=== PATIENT | female | born 1955 | race Caucasian/White ===

== ENCOUNTER 2016-12-22 21:36 | Emergency (ER) | payer BC, OTHER ==
[~2016-12-22] VITALS: Ht 157.5 cm; Wt 79.2 kg
[~2016-12-22 21:36] MED LIST: MULT-506 PO
[2016-12-22 21:41] VITALS: TEMP 36.4; Ht 157.5 cm; Wt 79.2 kg
--- NOTE | 2016-12-22 22:55 | DIAGNOSTIC IMAGING REPORT ---
CT HEAD WITHOUT CONTRAST (CT) CLINICAL HISTORY: Persistent headache status post head trauma COMPARISON STUDY: No previous studies for comparison. TECHNIQUE: Axial CT of the brain is performed from the vertex to the skull base. IV contrast was not administered for this examination. CT DOSE: 924.13 mGy.cm FINDINGS: No intra or extra-axial mass lesions are visualized. There is no CT evidence of acute cortical infarction. There is no evidence of midline shift. There is no acute hemorrhage. No calvarial fractures are visualized. There is no evidence of pathologic ventricular dilatation. There is no evidence of acute sinusitis IMPRESSION: Normal noncontrast head CT for age Electronically signed by: Ash Martines M.D. 12/22/2016 10:54 PM Dictated Date/Time: 12/22/2016 10:52 PM
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
[2016-12-22] MEDS ORDERED: FLEXERIL HOME PACK 10 MG VIAL PO ONE (23:15)
[2016-12-22] MEDS ORDERED: NORCO 5/325MG HOME PACK PO ONE (23:15)
[2016-12-22] MEDS ORDERED: HYDR-5688 PO (23:17)
[2016-12-22] MEDS ORDERED: CYCL10TA6 PO (23:17)
--- NOTE | 2016-12-22 23:23 | EMERGENCY ROOM VISIT NOTE ---
History First contact with patient: 22:18 Chief Complaint: HEADACHE Stated Complaint: HEADACHE History of Present Illness The patient is a 61 year old female who presents to the Emergency Room with complaints of a headache. She reports that she slipped and fell on ice 3 weeks ago and hit the back of her head. There was no loss of consciousness. She has had pain in the head and neck since then. She states it initially seemed to improve but has worsened over the past few days. She rates the discomfort a 9/ 10. She took Tylenol once last week for the pain but states this made her sleepy. She denies any associated nausea or vomiting. She states the pain is slightly worse with bright lights. She states it is a severe headache, but not the worst headache of her life. She describes it as a pressure-like pain. She does have a history of neck issues and currently goes to physical therapy for that. She denies any confusion, numbness, weakness, blurred vision, or slurred speech. Review of Systems A complete 10-point Review of Systems was discussed with the patient, with pertinent positives and negatives listed in the History of Present Illness. All remaining Review of Systems questions can be considered negative unless otherwise specified. Past Medical/Surgical History Medical Problems: (1) No pertinent past medical history Social History Smoking Status: Never Smoker Alcohol Use: occasionally Drug Use: none Marital Status: Housing Status: lives with family Occupation Status: employed Current/Historical Medications Scheduled Cyclobenzaprine Hcl (Flexeril), 10 MG PO TID Multivitamin (Multivitamin), 1 TAB PO DAILY Scheduled PRN Hydrocodone/Acetaminophen 5MG/325MG ([place] 5MG/325MG), 1-2 TABLET PO Q4H PRN for Pain Allergies Coded Allergies: No Known Allergies (Unverified , NKA, 12/22/16) Physical Exam Vital Signs Date Time Temp Pulse Resp B/P Pulse Ox O2 Delivery O2 Flow Rate FiO2 12/22/16 23:51 59 18 141/75 96 12/22/16 21:41 36.4 62 18 162/95 97 Room Air Physical Exam VITALS: Vitals are noted on the nurse's note and reviewed by myself. Vital signs stable. GENERAL: This is a 61-year-old female, in no acute distress, nondiaphoretic, well-developed well-nourished. SKIN: The skin was without rashes, erythema, edema, or bruising. HEAD: Normocephalic atraumatic. EARS: External auditory canals clear, tympanic membranes pearly gilmore without erythema or effusion bilaterally. No hemotympanum. EYES: Pupils equal round and reactive to light and accommodation. Conjunctivae without injection, sclerae without icterus. Extraocular movements intact. MOUTH: Mucous membranes moist. Tonsils are not enlarged. Pharynx without erythema or exudate. NECK: Supple without nuchal rigidity. Cervical spine is nontender. HEART: Regular rate and rhythm without murmurs gallops or rubs. LUNGS: Clear to auscultation bilaterally without wheezes, rales or rhonchi. MUSCULOSKELETAL: Full range of motion. Normal gait. Strength 5/5 throughout. NEURO: Patient was alert and oriented to person place and time. Normal sensation to light and sharp touch. Deep tendon reflexes 2+ throughout. No focal neurological deficits. Medical Decision & Procedures ER Provider Diagnostic Interpretation: CT HEAD WITHOUT CONTRAST (CT) IMPRESSION: Normal noncontrast head CT for age CT OF THE CERVICAL SPINE IMPRESSION: No evidence of acute fracture or traumatic subluxation. Medications Administered Medications (Trade) Dose Ordered Sig/Kwabena Route Start Time Stop Time Status Last Admin Dose Admin Cyclobenzaprine HCl (FLEXERIL 10MG Home Pack) 1 homepack UD ONCE PO 12/22/16 23:15 12/22/16 23:16 DC 12/22/16 23:48 1 HOMEPACK Acetaminophen/ Hydrocodone Bitart ([place] 5/325mg Home Pack) 1 homepack UD ONCE PO 12/22/16 23:15 12/22/16 23:16 DC 12/22/16 23:49 1 HOMEPACK Medical Decision The differential diagnosis includes acute intracranial bleed, meningitis, encephalitis, mass or mass effect, sinusitis, infection, tumor, headache, temporal arteritis and carbon monoxide exposure, and migraine. The patient was evaluated as above. CT scan of the head and neck were performed and read by radiology with no acute findings. The patient was informed of findings. Conservative measures were discussed. She likely has postconcussive syndrome. She was given a prescription for Flexeril and [place]. She will follow-up with her primary care provider for further evaluation of her symptoms. She will return for worsening or new/concerning symptoms. Based on the patient's presentation, lab results, and imaging studies, I feel the patient is stable for outpatient treatment. Discharge instructions were reviewed with the patient. The patient verbalized understanding of my assessment and treatment plan and was discharged home in good condition. Impression Primary Impression: Closed head injury Departure Information Dispostion Home / Self-Care Condition GOOD Prescriptions Hydrocodone/Acetaminophen 5MG/325MG ([place] 5MG/325MG) Tab 1-2 TABLET PO Q4H Y for Pain, #10 TAB For Initial Treatment Prov: Carlota Garduno PA-C 12/22/16 Cyclobenzaprine Hcl (FLEXERIL) 10 Mg Tab 10 MG PO TID for 3 Days, #9 TAB Prov: Carlota Garduno PA-C 12/22/16 Referrals Joseph Lopez M.D. (PCP) Patient Instructions My [facility] Additional Instructions You have been treated in the Emergency Department for a Closed Head Injury. CT Scan of your head/brain demonstrated no acute bleeding or other abnormalities. This does not completely rule out the risk for future damage to the brain. You have been prescribed [place] to be used for pain control. This is a narcotic medication. You cannot drive or consume alcohol while on this medicine. This medicine should only be used for pain that cannot be controlled with over-the- counter pain medicines. You have been prescribed Flexeril (cyclobenzaprine) 1-2 tabs orally, three times per day. Do NOT exceed 30 mg (6 tabs) per day. Take your first dose at bedtime as it can make you drowsy. Always take all medications as prescribed. For pain control, you can use the following ervk-yal-lxnmeye medicines (if >12 yo): - Regular strength (325mg/tab) Tylenol (acetaminophen) 2 tabs every 4-6 hours as needed. Do not exceed 12 tablets in a 24 hour period. Avoid taking more than 4 grams (4000 mg) of Tylenol per day. This includes any other sources of acetaminophen you may take on a regular basis. - Regular strength (200 mg/tab) Advil (ibuprofen) 1-2 tabs every 4-6 hours as needed. Do not exceed a dose of 3200 mg per day. You should relax in a quiet, dark place for the rest of the day. Avoid any possible triggers including: cigarette smoke, caffeine, nicotine, chocolate, wine, beer, loud noises or music, or bright lights. You should schedule a follow-up appointment in 2-3 days with your Primary Care Provider or established Neurologist for further evaluation and treatment of your Headache. [] You should NOT return to athletic play until reevaluated by your Electrical Appliance Mechanic. You should fully comply with their standard protocol regarding head injuries. Your Electrical Appliance Mechanic OR Primary Care Provider will have the final say in your return to athletic play. This timeframe should be AT LEAST 1 week AFTER the date of last symptoms experienced! This is ESSENTIAL to allow for adequate brain healing time and for reduced risk of re-injury. Return to the Emergency Department if your current symptoms worsen despite treatment course outlined above, or if you develop any of the following symptoms : intractable pain despite aforementioned treatment course, visual disturbances , loss of vision, unilateral weakness or facial drooping, slurring of speech, loss of coordination, or loss of consciousness. Problem Qualifiers Primary Impression: Closed head injury Encounter type: initial encounter Qualified Codes: S09.90XA - Unspecified injury of head, initial encounter
[2016-12-22 23:51] VITALS: BP 141/75; PULSE 59; O2SAT 96
== END 2016-12-22 23:52 | disposition home or self-care (01) ==
LOC: C.EDB 21:37 → C.EDA 23:52
DX: S09.90XA Unspecified injury of head, initial encounter (principal); W00.0XXA Fall on same level due to ice and snow, initial encounter

== ENCOUNTER → 2017-05-04 | Outpatient (CLI) | payer BC ==
[~2017-05-04] MED LIST changes: +HYDR-5688 PO
[2017-05-04 12:37] LABS: BASO % 1.1 %; BASO ABS # 0.06 K/uL (0-0.2); COMPLETE YES; EOS % 1.8 %; HEMATOCRIT 45.4 % (37-47); IG% 0.2 %; LYMPH % 22.5 %; LYMPH ABS # 1.24 K/uL (1.2-3.4); MEAN CELL VOLUME 91.2 fL (80-100); MEAN CORPUSCULAR HEMOGLOBIN 29.7 pg (25-34); MEAN CORPUSCULAR HGB CONC 32.6 g/dl (32-36); MEAN PLATELET VOLUME 10.8 fL (7.4-10.4); MONO % 11.4 %; PLATELET COUNT 249 K/uL (130-400); RED BLOOD COUNT 4.98 M/uL (4.2-5.4); WHITE BLOOD COUNT 5.51 K/uL (4.8-10.8)
[2017-05-04 12:44] LABS: ALT/SGPT 36 U/L (12-78); AST/SGOT 29 U/L (15-37); BLOOD UREA NITROGEN 16 mg/dl (7-18); BUN/CREATININE RATIO 21.1 (10-20); CALCIUM 8.3 mg/dl (8.5-10.1); CARBON DIOXIDE 23 mmol/L (21-32); CHLORIDE 111 mmol/L (98-107); CREATININE 0.78 mg/dl (0.60-1.20); GLUCOSE 95 mg/dl (70-99); POTASSIUM 3.8 mmol/L (3.5-5.1); SODIUM 142 mmol/L (136-145)
[2017-05-04 12:47] LABS: ALKALINE PHOSPHATASE 63 U/L (45-117)
== END | disposition home or self-care (01) ==
LOC: C.LABBFT 10:00
PROVIDERS: ATTEND Physician Assistant Medical
DX: R19.7 Diarrhea, unspecified (principal); R10.9 Unspecified abdominal pain

== ENCOUNTER 2018-01-10 10:48 | Emergency (ER) | payer BC ==
[~2018-01-10] VITALS: Ht 157.5 cm; Wt 82.7 kg
[2018-01-10 10:50] VITALS: TEMP 36.5; Ht 157.5 cm; Wt 82.7 kg
[2018-01-10] MEDS ORDERED: IBUPROFEN 600 MG TAB PO STA (11:10)
[2018-01-10] MEDS ORDERED: TRAMADOL HCL 50 MG TAB PO STA (11:10)
[2018-01-10] MEDS ORDERED: DIPHTHERIA/TETANUS/PERTUSSIS 0.5 ML SYR/VIAL IM. ONE (11:15)
--- NOTE | 2018-01-10 12:01 | DIAGNOSTIC IMAGING REPORT ---
L WRIST W/NAVICULAR MIN 3 VIEWS CLINICAL HISTORY: L wrist dog bite COMPARISON: None FINDINGS: No acute fracture is identified. There is no evidence for osteomyelitis. There is left wrist soft tissue swelling. 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 Cortical irregularity with a few tiny ossific/calcific densities adjacent to the distal left radius are likely old. IMPRESSION: No acute fracture or evidence of osteomyelitis within the left wrist by radiography. Electronically signed by: Miguelangel Colunga M.D. 01/10/2018 12:00 PM Dictated Date/Time: 01/10/2018 11:58 AM
[2018-01-10] MEDS ORDERED: AMOX875T PO (12:17)
[2018-01-10] MEDS ORDERED: TRAM-10 PO (12:17)
--- NOTE | 2018-01-10 12:26 | EMERGENCY ROOM VISIT NOTE ---
History First contact with patient: 11:02 Chief Complaint: BITE Stated Complaint: DOG BITE TO LEFT ARM History of Present Illness The patient is a 62 year old female who presents to the Emergency Room with complaints of a dog bite to her left hand. The patient reports that her [place] dog was biting on his palm this morning. When she tried to examine the palm, the dog bit her. This happened around 6 AM this morning. The patient denies any significant bleeding from the wound. She rates her discomfort a 10 out of 10. The patient is uncertain of her last tetanus immunization. Her dog is up-to-date on its shots. Review of Systems 10 system review was performed and was negative except for pertinent positives and negatives as indicated in history of present illness Past Medical/Surgical History Medical Problems: (1) No pertinent past medical history Medical Problems: (1) Celiac disease (2) Diaphragmatic Hernia (3) No pertinent past medical history (4) Ovarian Cyst Nec/Nos (5) Reflux Esophagitis Surgical Problems: (1) History of arthroscopy of knee (2) History of delivery Family History FH: diabetes mellitus Social History Smoking Status: Never Smoker Alcohol Use: occasionally Drug Use: none Marital Status: Housing Status: lives alone Occupation Status: employed Current/Historical Medications Scheduled Amoxicillin & Pot Clavulanate (Augmentin 875-125 mg), 1 TAB PO BID Calcium/Vitamin D (Os-Didier 500 Plus D), 1 TAB PO DAILY Glucosamine-Chondroitin (Glucosamine & Chondroitin 500-400 mg), 1 CAP PO DAILY Multivitamin (Multivitamin), 1 TAB PO DAILY Oxybutynin Chloride (Oxybutynin Chloride ER), 10 MG PO DAILY Scheduled PRN Tramadol (Ultram), 1-2 TAB PO Q4H PRN for Pain Physical Exam Vital Signs Date Time Temp Pulse Resp B/P (MAP) Pulse Ox O2 Delivery O2 Flow Rate FiO2 01/10/18 10:50 36.5 81 18 165/90 95 Room Air Physical Exam CONSTITUTIONAL: Healthy and well nourished. Patient does not appear in any acute distress on exam. HEENT: Normocephalic, atraumatic. Pupils equal, round and reactive. NECK: Full active range of motion without discomfort. MUSCULOSKELETAL: Examination of the left hand shows a puncture wound near the dorsal base of the first metacarpal, and another smaller puncture wound at the base of the thenar eminence. Flexion and extension of the thumb worsens her discomfort. She has no focal tenderness over the anatomic snuffbox. Capillary refill of the fingers is less than 2 seconds. INTEGUMENTARY: No rash or other significant dermatologic conditions noted. NEUROLOGIC: Left hand and fingers are sensory intact. Medical Decision & Procedures ER Provider Diagnostic Interpretation: My interpretation of left wrist x-rays does not show any acute foreign bodies, fractures, dislocations or evidence for osteomyelitis. Radiologist report is as follows: L WRIST W/NAVICULAR MIN 3 VIEWS CLINICAL HISTORY: L wrist dog bite COMPARISON: None FINDINGS: No acute fracture is identified. There is no evidence for osteomyelitis. There is left wrist soft tissue swelling. 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 Cortical irregularity with a few tiny ossific/calcific densities adjacent to the distal left radius are likely old. IMPRESSION: No acute fracture or evidence of osteomyelitis within the left wrist by radiography. Medications Administered Medications (Trade) Dose Ordered Sig/Kwabena Route Start Time Stop Time Status Last Admin Dose Admin Diphtheria/ Pertussis/Tetanus Vacc (Adacel Inj) 0.5 ml ONCE ONCE IM. 01/10/18 11:15 01/10/18 11:16 DC 01/10/18 11:20 0.5 ML Ibuprofen (Motrin Tab) 600 mg NOW STAT PO 01/10/18 11:10 01/10/18 11:12 DC 01/10/18 11:19 600 MG Tramadol HCl (Ultram Tab) 50 mg ONE STAT PO 01/10/18 11:10 01/10/18 11:12 DC 01/10/18 11:19 50 MG ED Course Patient history and physical exam were performed. Nurse's notes were reviewed. Vital signs were reviewed, showing an elevated blood pressure 165/90. The patient was administered ibuprofen and Ultram for pain. X-rays of the left wrist were normal. The patient will be prescribed Augmentin and Ultram. She was encouraged to alternate ibuprofen and Tylenol for baseline pain relief. Return to the emergency department for any developing infection, worsening pain or other concerning symptoms. The patient was happy with plan of care, voiced understanding of all discharge instructions, and rated her discomfort a 5 out of 10 at the conclusion of my exam. Medical Decision [place] Drug Monitoring Program Search Results: patient reviewed within database, no issues identified Medication Reconcilliation Current Medication List: was personally reviewed by me Blood Pressure Screening Patient's blood pressure: Elevated blood pressure Blood pressure disposition: Referred to PCP Impression Primary Impression: Dog bite of left hand Departure Information Prescriptions Tramadol (Ultram) 50 Mg Tab 1-2 TAB PO Q4H Y for Pain, #15 TAB For Initial Treatment Prov: Modesto Schuler PA 01/10/18 Amoxicillin & Pot Clavulanate (Augmentin 875-125 mg) 1 Tab Tab 1 TAB PO BID for 5 Days, #10 TAB Prov: Modesto Schuler PA 01/10/18 Referrals Joseph Lopez M.D. (PCP) Patient Instructions My [facility] Problem Qualifiers Primary Impression: Dog bite of left hand Encounter type: initial encounter Qualified Codes: S61.452A - Open bite of left hand, initial encounter; W54.0XXA - Bitten by dog, initial encounter
[2018-01-10 12:34] VITALS: BP 129/80; PULSE 65; O2SAT 98
[2018-01-11] MEDS ORDERED: GLUC1CAP33 PO (11:54)
[2018-01-11] MEDS ORDERED: CALC500C70 PO (11:54)
[2018-01-11] MEDS ORDERED: DTRSR/10 PO (11:56)
[2018-01-11] MEDS ORDERED: MULT-506 PO (20:27)
== END 2018-01-10 12:36 | disposition home or self-care (01) ==
LOC: C.EDB 10:49 → C.EDD 12:36
DX: S61.452A Open bite of left hand, initial encounter (principal); W54.0XXA Bitten by dog, initial encounter; K90.0 Celiac disease; Z83.3 Family history of diabetes mellitus; Z23 Encounter for immunization

== ENCOUNTER 2018-01-11 15:05 | Emergency (ER) | payer BC ==
[~2018-01-11] VITALS: Ht 157.5 cm; Wt 82.5 kg
[~2018-01-11 15:05] MED LIST changes: +AMOX875T PO; +CALC500C70 PO; +DTRSR/10 PO; +GLUC1CAP33 PO; -HYDR-5688 PO; -MULT-506 PO; +TRAM-10 PO
[2018-01-11 15:24] VITALS: TEMP 36.4; Ht 157.5 cm; Wt 82.5 kg
[2018-01-11] MEDS ORDERED: AMPICILLIN/SULBACTAM SOD INJ 3,000 MG in SODIUM CHLORIDE 0.9% 100ML 100 ML IV ONE (16:00)
--- NOTE | 2018-01-11 16:13 | EMERGENCY ROOM VISIT NOTE ---
History First contact with patient: 15:39 Chief Complaint: BITE Stated Complaint: DOG BITE, WAS TOLD TO COME BACK IF SWOLLEN History of Present Illness The patient is a 62 year old female who presents to the Emergency Room with complaints of redness and swelling of her left hand. Patient reports that she was seen here yesterday after a dog bite and started on Augmentin. She states that her own dog bit her. She reports that the dog becomes angry when she touches his back leg and that is why he bit her. She states the rabies vaccinations are up-to-date. She has taken 3 doses of Augmentin so far. She noticed some redness and swelling of the hand this morning. She has had some increased pain with movement of the hand. She rates her discomfort a 1/10. She felt warm this morning, but denies taking her temperature. Review of Systems A complete 10 point review of systems was reviewed with the patient with pertinent positives and negatives as per history of present illness. All else were negative. Past Medical/Surgical History Medical Problems: (1) Celiac disease (2) Diaphragmatic Hernia (3) No pertinent past medical history (4) Ovarian Cyst Nec/Nos (5) Reflux Esophagitis Surgical Problems: (1) History of arthroscopy of knee (2) History of delivery Family History FH: diabetes mellitus Social History Smoking Status: Never Smoker Alcohol Use: occasionally Drug Use: none Marital Status: Housing Status: lives alone Occupation Status: employed Current/Historical Medications Scheduled Amoxicillin & Pot Clavulanate (Augmentin 875-125 mg), 1 TAB PO BID Calcium/Vitamin D (Os-Didier 500 Plus D), 1 TAB PO DAILY Glucosamine-Chondroitin (Glucosamine & Chondroitin 500-400 mg), 1 CAP PO DAILY Multivitamin (Multivitamin), 1 TAB PO DAILY Oxybutynin Chloride (Oxybutynin Chloride ER), 10 MG PO DAILY Scheduled PRN Tramadol (Ultram), 1-2 TAB PO Q4H PRN for Pain Physical Exam Vital Signs Date Time Temp Pulse Resp B/P (MAP) Pulse Ox O2 Delivery O2 Flow Rate FiO2 01/11/18 17:47 69 18 141/82 97 Room Air 01/11/18 15:24 36.4 69 18 151/86 99 Room Air Physical Exam VITALS: Vitals are noted on the nurse's note and reviewed by myself. Vital signs stable. GENERAL: This is a 62-year-old female, in no acute distress, nondiaphoretic, well-developed well-nourished. SKIN: There is a small superficial puncture wound to the radial aspect of the dorsum of the left hand. HEART: Regular rate and rhythm without murmurs gallops or rubs. LUNGS: Clear to auscultation bilaterally without wheezes, rales or rhonchi. MUSCULOSKELETAL: Full range of motion of left wrist and all fingers. NEURO: Patient was alert and oriented to person place and time. Normal sensation. Medical Decision & Procedures Laboratory Results 01/11/18 16:30 Red Blood Count 4.36, Mean Corpuscular Volume 90.8, Mean Corpuscular Hemoglobin 31.0, Mean Corpuscular Hemoglobin Concent 34.1, Mean Platelet Volume 10.3, Neutrophils (%) (Auto) 64.7, Lymphocytes (%) (Auto) 19.0, Monocytes (%) (Auto) 11.2, Eosinophils (%) (Auto) 4.1, Basophils (%) (Auto) 0.8, Neutrophils # (Auto ) 4.06, Lymphocytes # (Auto) 1.19, Monocytes # (Auto) 0.70, Eosinophils # (Auto ) 0.26, Basophils # (Auto) 0.05 01/11/18 16:30 Test 01/11/18 16:30 White Blood Count 6.27 K/uL (4.8-10.8) Red Blood Count 4.36 M/uL (4.2-5.4) Hemoglobin 13.5 g/dL (12.0-16.0) Hematocrit 39.6 % (37-47) Mean Corpuscular Volume 90.8 fL (80-100) Mean Corpuscular Hemoglobin 31.0 pg (25-34) Mean Corpuscular Hemoglobin Concent 34.1 g/dl (32-36) Platelet Count 252 K/uL (130-400) Mean Platelet Volume 10.3 fL (7.4-10.4) Neutrophils (%) (Auto) 64.7 % Lymphocytes (%) (Auto) 19.0 % Monocytes (%) (Auto) 11.2 % Eosinophils (%) (Auto) 4.1 % Basophils (%) (Auto) 0.8 % Neutrophils # (Auto) 4.06 K/uL (1.4-6.5) Lymphocytes # (Auto) 1.19 K/uL (1.2-3.4) Monocytes # (Auto) 0.70 K/uL (0.11-0.59) Eosinophils # (Auto) 0.26 K/uL (0-0.5) Basophils # (Auto) 0.05 K/uL (0-0.2) RDW Standard Deviation 47.0 fL (36.4-46.3) RDW Coefficient of Variation 14.1 % (11.5-14.5) Immature Granulocyte % (Auto) 0.2 % Immature Granulocyte # (Auto) 0.01 K/uL (0.00-0.02) Anion Gap 8.0 mmol/L (3-11) Est Creatinine Clear Calc Drug Dose 77.4 ml/min Estimated GFR () 97.3 Estimated GFR (Non- 83.9 BUN/Creatinine Ratio 19.1 (10-20) Calcium Level 8.8 mg/dl (8.5-10.1) Medications Administered Medications (Trade) Dose Ordered Sig/Kwabena Route Start Time Stop Time Status Last Admin Dose Admin Ampicillin Sodium/ Sulbactam Sodium 3000 mg/Sodium Chloride 108 ml @ 200 mls/hr ONE ONCE IV 01/11/18 16:00 01/11/18 16:32 DC 01/11/18 16:32 200 MLS/HR Medical Decision Differential diagnosis includes cellulitis, abscess, tenosynovitis, among others. The patient was evaluated as above. She was seen yesterday for a dog bite. She was placed on Augmentin and has taken 3 doses of this. She has had increased redness and swelling in the area. On exam there is only a mild amount of erythema and swelling surrounding the bite. No evidence of a deep infection at this time. Labs revealed no significant leukocytosis. She is afebrile. I do feel it would be reasonable to treat the patient with a dose of IV antibiotics and have her follow-up closely here. She will return tomorrow for a follow-up or sooner as needed. She verbalized understanding of my assessment and treatment plan and was discharged home in good condition. Medication Reconcilliation Current Medication List: was personally reviewed by me Blood Pressure Screening Patient's blood pressure: Elevated blood pressure Blood pressure disposition: Elevated BP felt to be situational Impression Primary Impression: Cellulitis of hand Departure Information Dispostion Home / Self-Care Condition GOOD Referrals Joseph Lopez M.D. (PCP) Patient Instructions My [facility] Additional Instructions Continue the Augmentin as prescribed. For pain control, you can use the following tgmg-lcp-xpzirax medicines (if >12 yo): - Regular strength (325mg/tab) Tylenol (acetaminophen) 2 tabs every 4-6 hours as needed. Do not exceed 12 tablets in a 24 hour period. Avoid taking more than 4 grams (4000 mg) of Tylenol per day. This includes any other sources of acetaminophen you may take on a regular basis. - Regular strength (200 mg/tab) Advil (ibuprofen) 1-2 tabs every 4-6 hours as needed. Do not exceed a dose of 3200 mg per day. Return in 24 hours for a recheck. You should return sooner if you have worsening redness, swelling, fevers or other new/concerning symptoms.
[2018-01-11 16:43] LABS: BASO % 0.8 %; BASO ABS # 0.05 K/uL (0-0.2); EOS % 4.1 %; EOS ABS # 0.26 K/uL (0-0.5); HEMATOCRIT 39.6 % (37-47); HEMOGLOBIN 13.5 g/dL (12.0-16.0); IG# 0.01 K/uL (0.00-0.02); LYMPH ABS # 1.19 K/uL (1.2-3.4); MEAN CELL VOLUME 90.8 fL (80-100); MEAN CORPUSCULAR HGB CONC 34.1 g/dl (32-36); MEAN PLATELET VOLUME 10.3 fL (7.4-10.4); MONO % 11.2 %; NEUT % 64.7 %; NEUT ABS # 4.06 K/uL (1.4-6.5); PLATELET COUNT 252 K/uL (130-400); RED CELL DISTRIBUTION WIDTH CV 14.1 % (11.5-14.5); WHITE BLOOD COUNT 6.27 K/uL (4.8-10.8)
[2018-01-11 17:03] LABS: CALCIUM 8.8 mg/dl (8.5-10.1); CREATININE 0.77 mg/dl (0.60-1.20); POTASSIUM 3.3 mmol/L (3.5-5.1)
[2018-01-11 17:47] VITALS: BP 141/82; PULSE 69; O2SAT 97
[2018-01-11] MEDS ORDERED: MULT-506 PO (20:27)
== END 2018-01-11 18:05 | disposition home or self-care (01) ==
LOC: C.EDB 15:06 → C.EDD 18:05
DX: L03.114 Cellulitis of left upper limb (principal); S61.452A Open bite of left hand, initial encounter; W54.0XXA Bitten by dog, initial encounter; K90.0 Celiac disease; Z83.3 Family history of diabetes mellitus

== ENCOUNTER 2018-01-22 16:47 | Emergency (ER) | payer OTHER, BC ==
[~2018-01-22] VITALS: Ht 157.5 cm; Wt 82.4 kg
[~2018-01-22 16:47] MED LIST changes: -AMOX875T PO
[2018-01-22 16:50] VITALS: TEMP 36.7; Ht 157.5 cm; Wt 82.4 kg
[2018-01-22] MEDS ORDERED: ACETAMINOPHEN 500 MG TAB PO STA (17:15)
[2018-01-22] MEDS ORDERED: IBUPROFEN 200 MG TAB PO STA (17:15)
[2018-01-22] MEDS ORDERED: CYCLOBENZAPRINE HCL 10 MG TAB PO STA (17:15)
--- NOTE | 2018-01-22 17:22 | EMERGENCY ROOM VISIT NOTE ---
History First contact with patient: 16:59 Chief Complaint: NECK PAIN Stated Complaint: NECK PAIN GOING INTO LEFT ARM History of Present Illness The patient is a 62 year old female who presents to the Emergency Room with complaints of severe neck pain radiating down the left arm since yesterday. The patient was mildly injured at work. 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 She tried applying a pain patch to the area that was given to her at work with no relief. She is experiencing some tingling into her arm and fingers. She denies any weakness. The patient does have a history of a bulge disc in her neck. She denies any difficulty breathing. No pain in her chest. She has not taken anything orally for pain. Review of Systems 6 system review negative. Please see pertinent positives in the history of present illness section. Past Medical/Surgical History Medical Problems: (1) Celiac disease (2) Diaphragmatic Hernia (3) No pertinent past medical history (4) Ovarian Cyst Nec/Nos (5) Reflux Esophagitis Surgical Problems: (1) History of arthroscopy of knee (2) History of delivery Family History FH: diabetes mellitus Social History Smoking Status: Never Smoker Alcohol Use: occasionally Drug Use: none Marital Status: Housing Status: lives alone Occupation Status: employed Current/Historical Medications Scheduled Calcium/Vitamin D (Os-Didier 500 Plus D), 1 TAB PO DAILY Glucosamine-Chondroitin (Glucosamine & Chondroitin 500-400 mg), 1 CAP PO DAILY Multivitamin (Multivitamin), 1 TAB PO DAILY Oxybutynin Chloride (Oxybutynin Chloride ER), 10 MG PO DAILY Physical Exam Vital Signs Date Time Temp Pulse Resp B/P (MAP) Pulse Ox O2 Delivery O2 Flow Rate FiO2 01/22/18 18:23 56 18 172/92 99 Room Air 01/22/18 16:50 36.7 75 18 179/113 99 Room Air Physical Exam GENERAL: 62-year-old female, in no acute distress, nondiaphoretic, well- developed well-nourished. SKIN: The skin was without rashes, erythema, edema, or bruising. HEAD: Normocephalic atraumatic. NECK: Mild tenderness over the mid cervical spinous processes. Tenderness over the upper left trapezius muscle. Negative Spurling sign. Pain with extension of the neck. Biceps and triceps strength 5/5 bilaterally. Radial pulse +2. Potato Sorter strength intact. HEART: Regular rate and rhythm without murmurs gallops or rubs. LUNGS: Clear to auscultation bilaterally without wheezes, rales or rhonchi. No accessory muscle use. MUSCULOSKELETAL: Strength 5/5 throughout. NEURO: Patient was alert and oriented to person place and time. Normal sensation to touch. No focal neurological deficits. Medical Decision & Procedures ER Provider Diagnostic Interpretation: CT head/c/t/spine IMPRESSION: There is no hemorrhage, mass effect, or evidence of acute territorial ischemia by CT criteria. Electronically signed by: José Souza M.D. 01/22/2018 5:34 PM Dictated Date/Time: 01/22/2018 5:32 PM The status of this report is Signed. Draft = Not yet reviewed or approved by Radiologist. Signed = Reviewed and approved by Radiologist. <AttendingPhy></AttendingPhy> <FamilyPhy>Joseph Lopez M.D.</FamilyPhy> < PrimaryPhy>Joseph Lopez M.D.</PrimaryPhy> <UnitNumber>[id number]</UnitNumber > <VisitNumber>[id number]</VisitNumber> <PatientName>ALEX ANDERSON</ PatientName> <DateOfBirth>1955</DateOfBirth> <Location>[facility]</Location> < ServiceDate>01/22/18</ServiceDate> <MNE>ESINDI</MNE> <OrderingPhy>Yimi Parekh M.D.</OrderingPhy> <OrderingPhyMNE>f rep ord dr bangura</OrderingPhyMNE> <DictatingPhyMNE>f rep dict dr bangura</DictatingPhyMNE> <CCListMNE>f rep ct sveta</ CCListMNE> <AdmittingPhyMNE>f pt admit dr bangura</AdmittingPhyMNE> <AttendingPhyMNE >f pt attend dr bangura</AttendingPhyMNE> <ConsultingPhyMNE>f pt consult dr bangura</ConsultingPhyMNE> <FamilyPhyMNE>f pt fam dr bangura</FamilyPhyMNE> <OtherPhyMNE>f pt other dr bangura</OtherPhyMNE> < PrimaryPhyMNE>f pt prim care dr bangura</PrimaryPhyMNE> <ReferringPhyMNE>f pt referring dr bangura</ReferringPhyMNE> IMPRESSION: There is no evidence of fracture or subluxation involving the cervical spine. Electronically signed by: José Souza M.D. 01/22/2018 6:24 PM Dictated Date/Time: 01/22/2018 6:20 PM The status of this report is Signed. Draft = Not yet reviewed or approved by Radiologist. Signed = Reviewed and approved by Radiologist. <AttendingPhy></AttendingPhy> <FamilyPhy>Joseph Lopez M.D.</FamilyPhy> < PrimaryPhy>Joseph Lopez M.D.</PrimaryPhy> <UnitNumber>[id number]</UnitNumber > <VisitNumber>[id number]</VisitNumber> <PatientName>YUILSSA ANDERSONJADA Shaver</ PatientName> <DateOfBirth>1955</DateOfBirth> <Location>[facility]</Location> < ServiceDate>01/22/18</ServiceDate> <MNE>ESINDI</MNE> <OrderingPhy>Inge Lee PA-C</OrderingPhy> <OrderingPhyMNE>f rep ord dr bangura</OrderingPhyMNE> < DictatingPhyMNE>f rep dict dr bangura</DictatingPhyMNE> <CCListMNE>f rep ct sveta</ CCListMNE> <AdmittingPhyMNE>f pt admit dr bangura</AdmittingPhyMNE> <AttendingPhyMNE >f pt attend dr bangura</AttendingPhyMNE IMPRESSION: No acute bony abnormality is seen involving the thoracic spine. Dictated: 01/22/2018 6:24 PM Transcribed: 01/22/2018 6:50 PM [email or web address] Electronically signed by: José Souza M.D. 01/22/2018 6:51 PM Dictated Date/Time: 01/22/2018 6:24 PM The status of this report is Signed. Draft = Not yet reviewed or approved by Radiologist. Signed = Reviewed and approved by Radiologist. <AttendingPhy></AttendingPhy> <FamilyPhy>Joseph Lopez M.D.</FamilyPhy> < PrimaryPhy>Joseph Lopez M.D.</PrimaryPhy> <UnitNumber>[id number]</UnitNumber > <VisitNumber>[id number]</VisitNumber> <PatientName>ALEX ANDERSON</ PatientName> <DateOfBirth>1955</DateOfBirth> <Location>[facility]</Location> < ServiceDate>01/22/18</ServiceDate> <MNE>ESINDI</MNE> <OrderingPhy>Inge Lee PA-C</OrderingPhy> <OrderingPhyMNE>f rep ord dr bangura</OrderingPhyMNE> < DictatingPhyMNE>f rep dict dr bangura</DictatingPhyMNE> <CCListMNE>f rep ct mne</ CCListMNE> <AdmittingPhyMNE>f pt admit dr bangura</AdmittingPhyMNE> <AttendingPhyMNE >f pt attend dr bangura</AttendingPhyMNE> <ConsultingPhyMNE>f pt consult dr bangura</ConsultingPhyMNE> <FamilyPhyMNE>f pt fam dr bangura</FamilyPhyMNE> <OtherPhyMNE>f pt other dr bangura</OtherPhyMNE> < PrimaryPhyMNE>f pt prim care dr bangura</PrimaryPhyMNE> <ReferringPhyMNE>f pt referring dr bangura</ReferringPhyMNE> Medications Administered Medications (Trade) Dose Ordered Sig/Kwabena Route Start Time Stop Time Status Last Admin Dose Admin Ibuprofen (Advil Tab) 800 mg NOW STAT PO 01/22/18 17:15 01/22/18 17:16 DC 01/22/18 17:23 800 MG Cyclobenzaprine HCl (Flexeril Tab) 10 mg NOW STAT PO 01/22/18 17:15 01/22/18 17:16 DC 01/22/18 17:22 10 MG Acetaminophen (Tylenol Tab) 1,000 mg NOW STAT PO 01/22/18 17:15 01/22/18 17:16 DC 01/22/18 17:23 1,000 MG ED Course The patient was seen and examined She was medicated with Flexeril, Motrin and Tylenol Imaging was performed and reviewed Upon reevaluation, the patient was resting comfortably in bed. We discussed the results of her workup. She voiced understanding. Discharge instructions were reviewed, and she was discharged in good condition Medical Decision Differential diagnosis: Spine fracture, ligamentous injury, subluxation, spondylolisthesis, spondylosis, herniated disc, contusion, muscle spasm This patient is a 62-year-old female that presents to the emergency department complaining of severe neck pain radiating down her left arm. She also experiencing some tingling. She has a history of a herniated disc. Exam, no weakness was appreciated. She had some mild tenderness in the cervical spine. The patient also complained of mid thoracic back pain. Imaging did not reveal any acute abnormalities. The patient at good pain relief in the emergency department. As this is likely a muscular strain, I believe she is stable to be discharged home. She'll be sent home with Voltaren gel and Ultram. She will also take Tylenol and ibuprofen as needed for pain. She was given 2 days off of work to rest. She was encouraged to follow-up with her primary care physician this week for recheck. She agrees to return to the emergency department with any worsening symptoms. This chart was completed in part utilizing [employer] Speech Voice Recognition software. Attempts were made to minimize the grammatical errors, random word insertions, pronoun errors and incomplete sentences. Any formal questions or concerns about the content, text or information contained within the body of this dictation should be directly addressed to the provider for clarification. Medication Reconcilliation Current Medication List: was personally reviewed by me Blood Pressure Screening Patient's blood pressure: Elevated blood pressure Blood pressure disposition: Referred to PCP Impression Primary Impression: Back strain Additional Impression: Neck strain Departure Information Dispostion Home / Self-Care Condition GOOD Prescriptions Tramadol (Ultram) 50 Mg Tab 50 MG PO Q4H Y for Pain, #15 TAB Prov: Inge Lee PA-C 01/22/18 Diclofenac Sodium (Topical) (VOLTAREN 1% TOP GEL) 1 % Gel 1 APPLN TD Q6H for Pain, #1 TUBE Prov: Inge Lee PA-C 01/22/18 Referrals Joseph Lopez M.D. (PCP) Patient Instructions [facility], Neck Strain - [facility] Additional Instructions You have been evaluated in the emergency department for pain in the neck and back. No acute abnormalities were found on your imaging Please rest. No strenuous activity until the neck is feeling better. Ibuprofen 400 mg and/or Tylenol 1000 mg every 8 hours. You may also alternate these medications for more effective pain relief: Ibuprofen --4 HRS--> Tylenol --4 HRS--> ibuprofen --4 HRS--> Tylenol .... Please take Ultram 1 tab every 4 hours as needed for severe pain. This may be taken with Tylenol and ibuprofen. Please use Voltaren gel every 6 hours to the affected area as needed for pain Please follow-up with your primary care physician this week for a recheck Do not hesitate to return to the emergency department with any new, worsening or concerning symptoms Work Instructions Return To Work: 2 days Problem Qualifiers
--- NOTE | 2018-01-22 17:35 | DIAGNOSTIC IMAGING REPORT ---
CT SCAN OF THE BRAIN WITHOUT IV CONTRAST CLINICAL HISTORY: Neck pain radiating into the left upper extremity. COMPARISON STUDY: CT of the brain dated 12/22/2016. TECHNIQUE: Unenhanced axial CT scan of the brain is performed from the vertex to the skull base. A dose lowering technique was utilized adhering to the principles of ALARA. CT DOSE: 537.48 mGy.cm FINDINGS: Brain parenchyma: The brain parenchyma is normal in appearance. There is no hemorrhage, mass effect, or evidence of acute territorial ischemia by CT criteria. Moore-white matter is preserved. No extra-axial fluid collection is seen. Ventricles, sulci, cisterns: Normal in configuration. Intracranial vasculature: The visualized intracranial vasculature at the skull base is normal in appearance. Calvarium: Unremarkable. Sinuses and mastoids: The visualized paranasal sinuses are clear. The mastoid air cells are well pneumatized. Orbits: The bony orbits are grossly intact. IMPRESSION: There is no hemorrhage, mass effect, or evidence of acute territorial ischemia by CT criteria. Electronically signed by: José Souza M.D. 01/22/2018 5:34 PM Dictated Date/Time: 01/22/2018 5:32 PM
--- NOTE | 2018-01-22 18:25 | DIAGNOSTIC IMAGING REPORT ---
CT SCAN OF THE CERVICAL SPINE CLINICAL HISTORY: Neck pain. Left upper extremity radiculopathy. COMPARISON STUDY: CT of the cervical spine dated 12/22/2016. TECHNIQUE: CT scan of the cervical spine is performed from the skull base to the upper thoracic spine. Images are reviewed in the axial, sagittal, and coronal planes. IV contrast was not administered for this examination. A dose lowering technique was utilized adhering to the principles of ALARA. FINDINGS: Skeletal structures: The skeletal structures are osteopenic. There is no evidence of fracture or subluxation involving the cervical spine. Vertebral body height and alignment are maintained. Tiny anterior osteophytes are seen throughout. The odontoid process and lateral masses are intact. The atlantoaxial articulation is preserved noting productive degenerative change. The spinous processes appear intact. Mild uncovertebral and facet arthropathy is noted throughout the cervical spine. Intervertebral discs: The disc spaces are well maintained. Central canal: Grossly patent. Soft tissues: The prevertebral and paraspinous soft tissues are within normal limits. Calvarium: The visualized calvarium at the skull base appears intact. Brain parenchyma: Partially visualized brain parenchyma the skull base is within normal limits. Sinuses and mastoids: The visualized paranasal sinuses are clear. The mastoid air cells are well pneumatized. Lung apices: Clear as visualized. IMPRESSION: There is no evidence of fracture or subluxation involving the cervical spine. Electronically signed by: José Souza M.D. 01/22/2018 6:24 PM Dictated Date/Time: 01/22/2018 6:20 PM
--- NOTE | 2018-01-22 18:51 | DIAGNOSTIC IMAGING REPORT ---
CT SCAN OF THE THORACIC SPINE WITHOUT IV CONTRAST CLINICAL HISTORY: Thoracic back pain. COMPARISON STUDY: No priors. TECHNIQUE: CT scan of the thoracic spine is performed from the lower thoracic spine to the sacrum. Images are reviewed in the axial, sagittal, and coronal planes. IV contrast was not administered for this examination. A dose lowering technique was utilized adhering to the principles of ALARA. CT DOSE: 1226.89 mGy.cm. FINDINGS: The skeletal structures are osteopenic. There is no evidence of fracture or malalignment. Vertebral body height and alignment are maintained throughout the thoracic spine. The transverse and spinous processes are intact. No lytic or blastic lesion is seen. The posterior ribs are intact as visualized. There is mild disc space narrowing with endplate sclerosis seen at T6-T7. Tiny anterior osteophytes are seen throughout. There is no CT evidence of large disc herniation or significant central canal stenosis. The paraspinous soft tissues are normal as visualized. The visualized lung parenchyma appears clear. IMPRESSION: No acute bony abnormality is seen involving the thoracic spine. Dictated: 01/22/2018 6:24 PM Transcribed: 01/22/2018 6:50 PM SHYANN_Melina Electronically signed by: José Souza M.D. 01/22/2018 6:51 PM Dictated Date/Time: 01/22/2018 6:24 PM
[2018-01-22] MEDS ORDERED: DICL1GEL12 TD (19:06)
[2018-01-22] MEDS ORDERED: TRAM-10 PO (19:06)
[2018-01-22 19:16] VITALS: BP 144/81; PULSE 66; O2SAT 99
[2018-01-22] MEDS ORDERED: MULT-506 PO (20:27)
== END 2018-01-22 19:18 | disposition home or self-care (01) ==
LOC: C.EDB 16:48 → C.EDD 19:18
DX: S39.012A Strain of muscle, fascia and tendon of lower back, initial encounter (principal); S16.1XXA Strain of muscle, fascia and tendon at neck level, initial encounter; X50.0XXA Overexertion from strenuous movement or load, initial encounter; R03.0 Elevated blood-pressure reading, without diagnosis of hypertension; Z87.39 Personal history of other diseases of the musculoskeletal system and connective tissue; Z83.3 Family history of diabetes mellitus

== ENCOUNTER 2019-11-09 06:25 | Observation (INO) ==
--- NOTE | 2019-09-28 16:20 | PAT Medication Instructions ---
Medication Instructions Date of Service September 28, 2019 Home Medications antiarthritic combination no.2 900 mg tablet 1,800 mg PO DAILY jdrsckkf-xjw-qwkq-FA-Ca carb-vit K 18 mg iron-400 mcg-500 mg tablet 1 tab PO DAILY turmeric 800 mg PO DAILY 09/27/19 [History Confirmed 09/27/19] STOP taking 2 weeks before surgery (or as soon as possible if surgery is within 2 weeks) antiarthritic combination no.2 900 mg tablet 1,800 mg PO DAILY turmeric 800 mg PO DAILY 09/27/19 [History Confirmed 09/27/19] DO NOT take the morning of surgery rxbvnyrj-hps-qnsl-FA-Ca carb-vit K 18 mg iron-400 mcg-500 mg tablet 1 tab PO DAILY Other Notes If you have any questions please call us at [phone] or [phone] or [phone] or [phone]
--- NOTE | 2019-10-01 14:42 | Anesthesiology Consultation ---
Date of Service October 01, 2019 Assessment & Plan (1) Encounter for pre-operative examination: Chart Review Chart Review: Pending: Refer to Additional Notes / Consult section (pending preop testing (labs, EKG, CXR)) and Patient seen in Pre Admission Testing Teaching & Discussion Pre-Anesthesia Teaching/Discussion Notes: Instructed NPO after midnight before surgery,except medications with 15 cc of water. Medication instructions provi ded according to the PAT guidelines. History Surgery Operation Date: 11/09/19 14:20 Proposed Procedures p Left Total Knee Arthroplasty - Román Lantigua MD Height/Weight Height: 5 ft 2 in Weight: 80.3 kg Allergies Allergy/AdvReac Type Severity Reaction Status Date / Time gluten Allergy Intermediate Celiac Verified 10/01/19 14:41 disease Medications Home Medications Medication Instructions Recorded Confirmed Last Taken antiarthritic combination no.2 900 1,800 mg PO DAILY tab 09/05/19 09/27/19 Unknown mg tablet yvlvkdvn-ypy-nrdw-FA-Ca carb-vit K 1 tab PO DAILY 09/05/19 09/27/19 Unknown 18 mg iron-400 mcg-500 mg tablet turmeric 800 mg PO DAILY 09/27/19 09/27/19 Unknown Past Medical History Medical History Celiac disease Degenerative disc disease Obesity Osteoarthritis Urinary urgency Exercise / Class Metabolic Activity III < 4 Walking/Shop/Light housework Past Family History Family History Family/Other Colorectal cancer Hypertension Father Family history of diabetes mellitus Past Surgical History Surgical History History of section X 2 History of colonoscopy History of dilatation and curettage History of esophagogastroduodenoscopy (EGD) History of tooth extraction S/P knee surgery ? SIDE Past Anesthesia History No Hx of Anesthesia Complications Mother/sister: "slow to wake" History of PONV No Hx of PONV and No Hx of Motion Sickness Social History Smoking Status: Never smoker Do You Dip or Chew Tobacco: No Hx Alcohol Use: No Hx Substance Use: No substance use type: does not use Review of Systems Patient denies chest pain, shortness of breath, reflux, cough, wheezing, palpitations. Physical Exam Vital Signs VITALS BP 137/66 P 68 TEMP 98.0 SP02 96%RA RESP 18 PHYSICAL Full neck and c-spine range of motion. Full TMJ range of motion. TMD 3 finger breaths Mallampati Score 2 Dentition: full dentures on upper, several missing sides/molars on lower Lungs: clear throughout to auscultation Cardiac: regular rate and rhythm, no murmurs noted Spine: normal Carotid arteries: negative bruit Extremities: no edema
--- NOTE | 2019-10-01 15:10 | XRay Report ---
XR chest Pre-admission PA/Lat HISTORY: 63 years-old Female pat preoperative exam. No acute chest complaints COMPARISON: None available TECHNIQUE: PA and lateral views of the chest FINDINGS: Cardiomediastinal and hilar silhouettes are within normal limits. No pneumothorax, pleural effusion o r overt pulmonary edema. Bones of the chest appear grossly intact. Mild degenerative changes of the s houlders and spine. IMPRESSION: No acute process. The above report was generated using voice recognition software. It may contain grammatical, syntax o r spelling errors. Electronically signed by: Yovany Chen M.D. 10/01/2019 3:08 PM
[2019-10-01 15:11] LABS: Basophils # (auto) 0.03 K/uL (0-0.2); Basophils % (auto) 0.5 %; Eosinophils # (auto) 0.15 K/uL (0-0.5); Eosinophils % (auto) 2.3 %; Hematocrit (blood only) 41.7 % (37-47); Hemoglobin 13.9 g/dL (12.0-16.0); Immature Granulocytes # (auto) 0.01 K/uL (0.00-0.02); Immature Granulocytes % (auto) 0.2 %; Lymphocytes # (auto) 2.04 K/uL (1.2-3.4); Mean Corpuscular Hemoglobin 30.9 pg (25-34); Mean Corpuscular Hgb Conc 33.3 g/dL (32-36); Mean Corpuscular Volume 92.7 fL (80-100); Mean Platelet Volume 10.7 fL (7.4-10.4); Monocytes # (auto) 0.57 K/uL (0.11-0.59); Monocytes % (auto) 8.7 %; Neutrophils # (auto) 3.78 K/uL (1.4-6.5); Neutrophils % (auto) 57.3 %; Platelet Count 285 K/uL (130-400); RDW Coefficient of Variation 13.7 % (11.5-14.5); RDW Standard Deviation 46.5 fL (36.4-46.3); White Blood Count 6.58 K/uL (4.8-10.8)
[2019-10-01 15:18] LABS: BUN Creatinine Ratio 21.5 (10-20); Calcium 9.1 mg/dl (8.5-10.1); Creatinine Clr Calc Pharmacy 67.4 ml/min; Est GFR (African American) 84.5; Est GFR (Non-African American) 72.9
[2019-10-01 15:23] LABS: Partial Thromboplastin Time 28.2 Seconds (21.0-31.0); Prothrombin Time 10.7 Seconds (9.0-12.0)
--- NOTE | 2019-11-03 18:43 | History and Physical Report ---
DATE OF ADMISSION: 11/09/2019 CHIEF COMPLAINT: Left knee pain and discomfort. HISTORY OF PRESENT ILLNESS: The patient is a 63-year-old female referred by my partner Dr. Casillas for surgical treatment of her left knee. She has a several year history of increasing left knee pain and discomfort, describes it has gotten worse over time. She has resorted to using a cane or crutch to get around. She describes mostly medial pain but some global pain. The knee gets stiff. She has difficulty going up and down steps. She has been treated with extensive conservative treatment which has not really helped much at all. She has tried to lose weight but very limited her mobility status and having difficulty doing this. She has been counseled on weight loss. PAST MEDICAL HISTORY: Low back pain/sciatica. PAST SURGICAL HISTORY: Include: 1. . 2. Right knee arthroscopy 10 years ago. ALLERGIES: None. CURRENT MEDICINES: 1. Once a day vitamin. 2. Glucosamine chondroitin. 3. Unspecified med - once a day. SOCIAL HISTORY: A 63-year-old white female. Lives in [place]. Does not smoke. No significant alcohol intake. FAMILY HISTORY: Noncontributory. REVIEW OF HISTORY: Negative for diabetes, neurologic problem, vascular problem or bleeding disorders. Denies any chest pain or shortness of breath. No history of DVT or PE. No known bleeding problems. PHYSICAL EXAMINATION: GENERAL: Shows a healthy, pleasant middle-aged female. Looks to be in reasonably good health. HEENT: Benign. NECK: Supple, no lymphadenopathy. LUNGS: Clear to auscultation. HEART: Has a regular rate and rhythm. ABDOMEN: Soft, nontender, nondistended. EXTREMITIES: Grossly neurovascularly intact except as follows: Examination of the knee reveals patient walks with an antalgic gait. She has varus alignment to her knee. She is tender over the medial joint line. She has bony hypertrophy medially. Small knee effusion. Range of motion is 10 degrees short of full extension and about 110 degrees of flexion. She can do a straight leg raise. No pain with hip motion. X-RAYS: X-rays of the left knee reviewed. Shows advanced left knee DJD. She has got near complete loss of medial joint space. She has got osteophytes off the medial femoral condyle and medial tibial plateau. She has got some lateral compartment disease and patellofemoral disease as well. ASSESSMENT: A 63-year-old white female with advanced left knee tricompartment degenerative joint disease. She failed conservative treatment and would like to have her left knee replaced. PLAN: We will take her to the operating room and do a left total knee replacement. The risks and benefits of this procedure were explained to the patient include but not limited to DVT, PE, , infection, neurological injury, vascular injury, bleeding problem, pain, limited range of motion, stiffness, failure to relieve symptoms, incomplete relief of symptoms, need for further surgery in future, fracture, leg length inequality, nerve palsy, etc. The patient understands and desires to proceed. Informed consent was obtained. AURELIA
[~2019-11-09 06:25] MED LIST changes: +ACETAMINOPHEN 500 MG TAB PO SCH; +BUPIVACAINE LIPOSOME/PF 266 MG, BUPIVACAINE/EPINEPHRINE 50 ML, SODIUM CHLORIDE 0.9% 30 ... INFIL SCH; -CALC500C70 PO; +CEFAZOLIN 2000MG 2,000 MG/15 ML SYR IV SCH; -DTRSR/10 PO; +FAMOTIDINE 20 MG TAB PO SCH; +GABAPENTIN 600 MG DOSE PO SCH; -GLUC1CAP33 PO; +LR 500ML BOLUS, THEN 15ML/HR IV SCH; +LR 60ML/HR IV SCH; +METOCLOPRAMIDE HCL 10 MG TABLET PO SCH; +SCOPOLAMINE 1.5 MG TDSY TD SCH; -TRAM-10 PO; +TRANEXAMIC ACID 1,000 MG **IV Intra-op IV SCH
[2019-11-09] MEDS ORDERED: BUPIVACAINE 0.5 % 5 MG/1 ML PF 10ML VIAL ONE (06:29)
[2019-11-09] MEDS ORDERED: BUPIVACAINE 0.25% 30 ML VIAL ONE (06:29)
--- NOTE | 2019-11-09 06:52 | History & Physical Bridge Note ---
Date of Service November 09, 2019 History & Physical Bridge Note I have examined the patient, reviewed the History & Physical and in the interval since the performance of the History & Physical I have noted the following changes of clinical significance: no changes noted
[2019-11-09] MEDS ORDERED: PROPOFOL IV EMULSION 10 MG/ML 20 ML VIAL IV ONE (07:33)
[2019-11-09] MEDS ORDERED: MIDAZOLAM HCL 1 MG/ML 2ML VIAL ONE (07:33)
[2019-11-09] MEDS ORDERED: fentaNYL citrate 100 MCG/2 ML VIAL ONE (07:33)
[2019-11-09] MEDS ORDERED: LIDOCAINE HCL 2% 2 ML VIAL/AMP(20MG/ML) INFIL ONE (07:33)
[2019-11-09] MEDS ORDERED: ATROPINE SULFATE 0.1 MG/ML 10ML SYR IV PRN (08:42)
[2019-11-09] MEDS ORDERED: ePHEDrine sulfate 50 MG/ML AMP IV PRN (08:42)
[2019-11-09] MEDS ORDERED: BACITRACIN INJ 50,000 UNIT VIAL ONE (08:56)
[2019-11-09] MEDS ORDERED: BUPIVACAINE/EPINEPHRINE 0.25% 1:200,000 30 ML VIAL ONE (08:56)
[2019-11-09] MEDS ORDERED: SODIUM CHLORIDE 0.9% PF 50 ML VIAL ONE (08:56)
[2019-11-09] MEDS ORDERED: BUPIVACAINE LIPOSOME 1.3% 266 MG/20 ML VIAL ONE (08:56)
--- NOTE | 2019-11-09 11:03 | Post Operative Brief Note ---
PG Immediate Post Op with CF Date of Surgery November 09, 2019 Pre & Post Diagnosis Operation Date: 11/09/19 08:50 Pre-Op Diagnosis: Left Knee Advanced Degenerative Joint Disease Post-Op Diagnosis: Left Knee Advanced Degenerative Joint Disease I identified the patient and participated in the time-out.: Yes Procedure Operation Date: 11/09/19 08:50 Actual Procedures p Left Total Knee Arthroplasty(Left) - Román Lantigua MD Surgeon Román Lantigua MD Staff Reporter Kevin, PAC Estimated Blood Loss 50 Findings Consistent with Post-Op Diagnosis Fluids 1400 cc Specimens Specimen Description: A. Left Knee Bone and Tissue Drains Alegria Catheter (A 16 Turkmen alegria catheter was inserted by [facility] [place], without difficulty, clear yellow urine obtained, output to be monitored by Anesthesia.) Anesthesia Type Spinal MAC Complications none Disposition Accompanied Patient To Recovery: No Disposition: Recovery Room
--- NOTE | 2019-11-09 11:27 | XRay Report ---
LEFT KNEE 2 VIEWS History: Left total knee arthroplasty. Degenerative arthritis. Postop. FINDINGS: The patient is status post a left total knee arthroplasty. The hardware is intact. No fract ure or dislocation. Skin stevan and surgical drains are in place. IMPRESSION: Left total knee arthroplasty. No evidence for hardware complication. ACT 112: Negative or not required by law. Electronically signed by: Yanick Zepeda M.D. 11/09/2019 11:26 AM
--- NOTE | 2019-11-09 11:28 | Operative Report ---
Post Operative Report Pre & Post Diagnosis Operation Date: 11/09/19 08:50 Pre-Op Diagnosis: Left Knee Advanced Degenerative Joint Disease Post-Op Diagnosis: Left Knee Advanced Degenerative Joint Disease I identified the patient and participated in the time-out.: Yes Procedure Operation Date: 11/09/19 08:50 Actual Procedures p Left Total Knee Arthroplasty(Left) - Román Lantigua MD Surgeon Román Lantigua MD Customer Engagement Analyst Kevin, PAC Estimated Blood Loss 50 Findings Consistent with Post-Op Diagnosis Operative findings revealed advanced left knee DJD with a grade 4 [id number] disease of the medial and patellofemoral compartments. She had a moderate to large knee joint effusion. Some moderate synovitis. She had osteophytes of the medial femoral condyle medial tibial plateau. Fluids 1400 cc Specimens Left knee sent for pathology. Drains None. Anesthesia Type Spinal MAC Complications none Disposition Accompanied Patient To Recovery: No Disposition: Recovery Room Indications Patient is a 63-year-old female referred to me by my partner Dr. Phylicia Gunn for treatment of her left knee. She has several year history of increased left knee pain discomfort that is gradually gotten worse and unresponsive conservative treatment. X-rays show tricompartment disease. She elected proceed with total knee arthroplasty. She did have a fairly stiff knee with about a 10 degree flexion contracture and can only flex about 110 degrees. Description of Procedure Operative implants consisted of: 1. Biomet Vanguard size 67.5 left posted by femoral component. 2 Biomet size 67 tibial tray. 3. 10 mm posterior box polyethylene insert. 4. 31 x 8 all poly-patella. Patient was taken to the operating room identified and placed on the operating table supine position protectors were properly padded. IV antibiotics were provided by the anesthesia team. A spinal anesthetic and abductor canal block had been provided in the holding area. La catheter was placed in sterile fashion the left thigh tourniquet was then placed in the left lower extremities and prepped and draped in usual sterile fashion. The left leg was elevated exsanguinated use of an Esmarch and turns placed at 3 mmHg. An anterior posterior left knee was then performed to a longitudinal incision centered over the patella. Sharp dissection was carried out through the subcutaneous tissue down below the extensor mechanism. Medial parapatellar arthrotomy incision was made. Some subperiosteal dissection was carried out medially. The fat pad was resected from each patella tendon. Lateral patellofemoral ligament was released. Patella was subluxated laterally and the knee was flexed. The osteophytes taken off the distal femur. The ACL and PCL were then released from the distal femur the tibia subluxated anteriorly. The external tibial alignment jig was then placed in the anterior face the tibia and adjusted 14 mm medially. Proximal tibial cut was made to remove about 2 mm of bone off the most efficient aspect medial tibial plateau. The tibia was then sized to a size 67. Attention drawn the femur. This femur then with a sharp drill bit intramedullary canal was suction. A left 5 degree valgus cutting guide was placed. Distal femoral cutting block was pinned in place. Distal femoral cut was made to take an additional 3 mm of bone off distal femur. The femur was then sized to a size 60 7.5P we did downsize this significantly. The AP cutting block was then pinned parallel to the epicondylar axis which was 5 degrees of external rotation. Anterior cut, anterior chamfer, posterior cut, posterior chamfer cuts were made. Box cutting guide was placed and adjusted slightly lateral and the box cut was made. The knee was flexed. The remnants of medial lateral menisci were excised. The osteophytes were taken off the posterior aspect of the femur. A trial femoral component was placed. The tibial tray was pinned in maximum external rotation and the drill and stem punch were used to create the defect in the proximal tip for the tibial tray. Knee was then trialed the 10 mm insert fit most appropriately. Attention then drawn to the patella. The patella was cleaned of all soft tissues. Patella thickness measured 22 mm in thickness was cut down to 13. Was sized to a size 31 patella. Locals were drilled for 31 patella. The lateral osteophyte is moved. Patella button was placed. Knee was taken through range of motion patella tracked nicely with no thumbs test. Attention turned to placing the permanent components. All trial components removed. Bone plug was placed in the distal femur limit blood loss put a double batch Palacos G cement was mixed. A Biomet Vanguard size 67.5 left posterior by femoral component, a size 67 tibial tray, a 10 mm posterior box polyethylene insert, and a 31 x 8 all poly-patella then cement in place. Knees brought in full extension total cement hardened. Final cement check was then performed. Pericapsular tissues were injected with total of 100 cc of combination of 20 cc of Exparel, 30 cc normal saline, 50 cc of quarter percent Marcaine with epinephrine. Patient did receive 1 g of tranexamic acid. The tourniquet was then let down for tourniquet time 53 minutes. Hemostasis assured use electrocautery. Extensor mechanism then closed with combination 1 PDS suture #1 Vicryl suture in [id number] fashion for extensor mechanism checked found to be intact the subcutaneous tissue then closed with 2 Dexon suture in a buried interrupted fashion skin was closed skin stevan. Leg was then cleaned dried and sterile dressing composed of Xeroform, 4 x 4's, sterile cast padding, Chema bandage were applied. Patient then transferred to the recovery room in stable condition. Patient tolerated procedure well no complications I attest to the content of the Intraoperative Record and any orders documented therein. Any exceptions are noted below.
--- NOTE | 2019-11-09 12:24 | Anesthesiology Progress Note ---
Date of Service November 09, 2019 Anesthesia Post Procedure Vital Signs Vital Signs: Temp Pulse Pulse Resp BP BP Pulse Ox 11/09/19 12:00 36.4 C L 59 L 13 111/63 100 11/09/19 11:50 63 15 123/54 L 100 11/09/19 11:40 85 16 128/68 100 11/09/19 11:30 65 16 120/64 100 11/09/19 11:20 78 12 128/62 100 11/09/19 11:10 36.3 C L 73 25 H 126/58 L 100 11/09/19 07:04 36.6 C 73 20 154/89 H 98 Pain Intensity Left Knee: Pain Intensity: 0 Transfer of Care Handoff Completed per policy Notes Mental Status: alert / awake / arousable and participated in evaluation Nausea / Vomiting: adequately controlled Pain: adequately controlled Airway Patency, RR, SpO2: stable & adequate BP & HR: stable & adequate Hydration State: stable & adequate Neuraxial Anesthesia: was administered and sensory block is resolving Anesthetic Complications: no major complications apparent and Pt Satisfied with anesthetic care
[2019-11-09] MEDS ORDERED: ALUMINUM/MAGNESIUM SUSP 30 ML UDC PO PRN (12:26)
[2019-11-09] MEDS ORDERED: MAGNESIUM HYDROXIDE SUSP 30 ML UDC PO PRN (12:26)
[2019-11-09] MEDS ORDERED: NALOXONE HCL 0.4 MG/1 ML VIAL/CARP IV PRN (12:26)
[2019-11-09] MEDS ORDERED: ONDANSETRON INJ 2 MG/ML 2 ML VIAL IV PRN (12:26)
[2019-11-09] MEDS ORDERED: HYDROmorphone INJ 0.5 MG/0.5 ML SYR IV PRN (12:26)
[2019-11-09] MEDS ORDERED: bisacodyL 10 MG SUPP PR PRN (12:26)
[2019-11-09] MEDS ORDERED: METOCLOPRAMIDE HCL INJ 5 MG/ML 2 ML VIAL IV PRN (12:26)
[2019-11-09] MEDS: CHECK SCOPOLAMINE PATCH PLACEMENT SCH ×2 (13:57→16:09)
[2019-11-09] MEDS: KETOROLAC 30 MG/ML VIAL IV SCH ×2 (13:58→18:33)
[2019-11-09] MEDS: ACETAMINOPHEN 500 MG TAB PO SCH ×2 (13:58→20:59)
[2019-11-09] MEDS: CEFAZOLIN 2000MG 2,000 MG/15 ML SYR IV SCH (16:09)
[2019-11-09] MEDS: FERROUS GLUCONATE 324 MG TAB PO SCH (16:13)
[2019-11-09] MEDS: ASCORBIC ACID 500 MG TAB PO SCH (16:13)
[2019-11-09] MEDS: SODIUM CHLORIDE 0.9% 1000ML 1,000 ML IV SCH (16:38)
[2019-11-09] MEDS ORDERED: TRANEXAMIC ACID / 0.7% NACL 1,000 MG/100 ML BAG IV SCH (17:07)
[2019-11-09] MEDS: OXYCODONE HCL IR 5 MG TAB (IMMEDIATE RELEASE) PO PRN (18:51)
[2019-11-09] MEDS: SENNA 8.6 MG TAB PO SCH (20:59)
[2019-11-09] MEDS: ASPIRIN 81 MG ECTAB PO SCH (21:00)
[2019-11-09] MEDS: DOCUSATE SODIUM 100 MG CAP PO SCH (21:00)
[2019-11-09] MEDS: TAPENTADOL HCL ER 50 MG TABCR PO SCH (21:02)
[2019-11-10] MEDS: KETOROLAC 30 MG/ML VIAL IV SCH ×4 (01:03→18:06)
[2019-11-10] MEDS: CEFAZOLIN 2000MG 2,000 MG/15 ML SYR IV SCH (01:04)
[2019-11-10] MEDS: CHECK SCOPOLAMINE PATCH PLACEMENT SCH (01:04)
[2019-11-10] MEDS: SODIUM CHLORIDE 0.9% 1000ML 1,000 ML IV SCH (02:33)
[2019-11-10] MEDS: ACETAMINOPHEN 500 MG TAB PO SCH ×3 (05:53→21:22)
[2019-11-10 05:59] LABS: Hematocrit (blood only) 34.4 % (37-47); Hemoglobin 11.5 g/dL (12.0-16.0); Mean Corpuscular Hgb Conc 33.4 g/dL (32-36); Mean Corpuscular Volume 92.7 fL (80-100); Mean Platelet Volume 10.7 fL (7.4-10.4); Platelet Count 195 K/uL (130-400); RDW Standard Deviation 47.5 fL (36.4-46.3); Red Blood Count 3.71 M/uL (4.2-5.4); White Blood Count 7.33 K/uL (4.8-10.8)
[2019-11-10 06:27] LABS: Calcium 8.2 mg/dl (8.5-10.1); Creatinine Clr Calc Pharmacy 77.3 ml/min; Est GFR (African American) 99.7; Potassium 4.3 mmol/L (3.5-5.1)
--- NOTE | 2019-11-10 08:06 | Progress Note ---
DATE: 11/10/2019 SUBJECTIVE: A 63-year-old white female postop day 1 from a left knee replacement. She is doing pretty well. Pain is controlled. Had a pretty good evening. No chest pain or shortness of breath. Not feeling dizzy or lightheaded. OBJECTIVE: VITAL SIGNS: Temperature 36.7. Vital signs stable. GENERAL: Reveals a pleasant, middle-aged female. She is sitting up in bed and looks quite comfortable. LUNGS: Clear to auscultation. HEART: Has regular rate and rhythm. ABDOMEN: Soft, nontender, nondistended. EXTREMITIES: Grossly neurovascularly intact except as follows. Examination of the left lower extremity reveals the dressing to be clean, dry and intact. She can dorsiflex and plantarflex her foot appropriately. She is neurologically intact. Brisk refill. LABORATORY DATA: Hemoglobin 11.5. Hematocrit 34.4. Electrolytes are stable. ASSESSMENT: A 63-year-old white female postop day 1 from left knee replacement, doing pretty well. Pain is controlled. She is neurologically intact. PLAN: 1. DVT prophylaxis including thigh-high TEDs, SCDs and aspirin twice a day. 2. PT/OT. Weight bear as tolerated. Left total knee protocol. 3. Pain control, doing pretty well with current pain regimen. 4. Disposition: Plan to discharge to home with some home health once adequately recovered and medically stable.
[2019-11-10] MEDS ORDERED: NON-FORMULARY MEDICATION (Mv-Mn-Iron-Fa-Ca Carb-Vit K [One-A-Day Womens Formula] 1 TAB) PO SCH (09:00)
[2019-11-10] MEDS ORDERED: TURMERIC 800 MG PO SCH (09:00)
[2019-11-10] MEDS: ASPIRIN 81 MG ECTAB PO SCH ×2 (09:21→20:23)
[2019-11-10] MEDS: DOCUSATE SODIUM 100 MG CAP PO SCH ×2 (09:21→20:22)
[2019-11-10] MEDS: FERROUS GLUCONATE 324 MG TAB PO SCH ×2 (09:21→16:44)
[2019-11-10] MEDS: ASCORBIC ACID 500 MG TAB PO SCH ×2 (09:21→16:44)
[2019-11-10] MEDS: MULTIVITAMIN TAB PO SCH (09:22)
[2019-11-10] MEDS: TAPENTADOL HCL ER 50 MG TABCR PO SCH ×2 (09:24→20:25)
[2019-11-10] MEDS: OXYCODONE HCL IR 5 MG TAB (IMMEDIATE RELEASE) PO PRN ×2 (14:24→21:29)
--- NOTE | 2019-11-10 16:09 | Anesthesiology Progress Note ---
Date of Service November 10, 2019 Anesthesia Post Procedure Vital Signs Vital Signs: Temp Pulse Resp BP Pulse Ox 11/10/19 15:07 36.8 C 73 17 147/79 H 97 11/10/19 12:33 36.4 C L 55 L 16 122/70 98 11/10/19 06:56 36.7 C 57 L 16 114/63 99 11/10/19 03:01 36.4 C L 70 16 103/63 97 11/09/19 23:21 36.3 C L 57 L 16 112/70 99 11/09/19 19:38 36.3 C L 58 L 17 119/71 96 Pain Intensity Left Knee: Pain Intensity: 2 Transfer of Care Handoff Completed per policy Notes Mental Status: alert / awake / arousable and participated in evaluation Nausea / Vomiting: adequately controlled Pain: adequately controlled Airway Patency, RR, SpO2: stable & adequate BP & HR: stable & adequate Hydration State: stable & adequate Anesthetic Complications: no major complications apparent
[2019-11-10] MEDS: SENNA 8.6 MG TAB PO SCH (20:23)
[2019-11-11] MEDS: KETOROLAC 30 MG/ML VIAL IV SCH ×2 (00:11→06:20)
[2019-11-11] MEDS: ACETAMINOPHEN 500 MG TAB PO SCH (05:16)
--- NOTE | 2019-11-11 08:17 | Progress Note ---
DATE: 11/11/2019 SUBJECTIVE: A 63-year-old female postop day 2 from left knee replacement. She is doing pretty well. Pain is controlled. No chest pain or shortness of breath. Not feeling dizzy or lightheaded. Therapy went pretty well. OBJECTIVE: VITAL SIGNS: Temperature 36.6. Vital signs stable. GENERAL: Shows a pleasant, middle-aged female. She is lying in bed, looks quite comfortable this morning. EXTREMITIES: Examination of the left leg reveals the leg to be well aligned. Dressing is clean, dry and intact. No significant drainage. Calf is soft and supple. She is neurologically intact. ASSESSMENT: A 63-year-old white female postop day 2 from a left knee replacement, doing well. Pain is controlled. PLAN: 1. DVT prophylaxis including thigh-high TEDs, SCDs, and aspirin twice a day. 2. PT/OT. Weight bear as tolerated. Left total knee protocol. 3. Pain control, doing pretty well with current pain regimen. 4. Disposition: Plan to discharge to home with some home health later today.
[2019-11-11] MEDS: DOCUSATE SODIUM 100 MG CAP PO SCH (08:45)
[2019-11-11] MEDS: ASCORBIC ACID 500 MG TAB PO SCH (08:45)
[2019-11-11] MEDS: TAPENTADOL HCL ER 50 MG TABCR PO SCH (08:45)
[2019-11-11] MEDS: MULTIVITAMIN TAB PO SCH (08:45)
[2019-11-11] MEDS: ASPIRIN 81 MG ECTAB PO SCH (08:45)
[2019-11-11] MEDS: FERROUS GLUCONATE 324 MG TAB PO SCH (09:34)
--- NOTE | 2019-11-13 09:41 | Discharge Summary ---
DATE OF ADMISSION: 11/09/2019 DATE OF DISCHARGE: 11/11/2019 ADMITTING PHYSICIAN AND SURGEON: Dr. Román Lantigua. ADMITTING DIAGNOSIS: Left knee degenerative joint disease. SURGERY PERFORMED: Left total knee arthroplasty. SECONDARY DIAGNOSES: Low back pain and sciatica. CONSULTS: None obtained. HISTORY AND PHYSICAL EXAMINATION: Well documented in the patient's chart. HOSPITAL COURSE: The patient was admitted on 11/09/2019, underwent total knee arthroplasty, tolerated the procedure well. There were no complications. She was transferred to the PACU postoperatively and later to the orthopedic floor for further care. She was given Ancef for antibiotic prophylaxis, MAHOGANY stockings, SCDs and aspirin for DVT prophylaxis. Hemoglobin, hematocrit and vital signs were monitored throughout her hospital stay and remained stable. She did not require any blood transfusions. There were no complications. By postoperative day 2, she was tolerating a gluten-free diet. She was participating in physical therapy. Pain was controlled with oral pain medicine. Postop day 2, she was discharged home, set up with home health services. She was given printed discharge instructions as well as new prescriptions for extra strength Tylenol, aspirin and oxycodone. Continue her home medications, continue physical therapy, weightbearing as tolerated, MAHOGANY stockings. Follow up approximately 2 weeks postop or sooner if there are any problems or concerns.
== END 2019-11-11 11:27 | disposition home health service (06) | DRG 470 ==
LOC: ASU 06:25 → 3E 11:04 → INTOOBSV 11:07

== ENCOUNTER 2025-03-12 23:32 | Observation (INO) ==
[2025-03-13 00:18] LABS: Basophils # (auto) 0.05 K/uL (0.00-0.20); Basophils % (auto) 0.6 %; Eosinophils # (auto) 0.15 K/uL (0.00-0.50); Eosinophils % (auto) 1.7 %; Hematocrit (blood only) 40.7 % (37.0-47.0); Hemoglobin 13.7 g/dl (12.0-16.0); Immature Granulocytes # (auto) 0.03 K/uL (0.01-0.20); Immature Granulocytes % (auto) 0.3 %; Lymphocytes # (auto) 2.34 K/uL (1.20-3.40); Mean Corpuscular Hemoglobin 30.5 pg (25.0-34.0); Mean Corpuscular Hgb Conc 33.7 g/dL (32.0-36.0); Mean Corpuscular Volume 90.6 fL (80.0-100.0); Mean Platelet Volume 10.2 fL (9.4-12.4); Monocytes # (auto) 0.87 K/uL (0.11-0.59); Monocytes % (auto) 9.7 %; Neutrophils # (auto) 5.55 K/uL (1.40-6.50); Neutrophils % (auto) 61.7 %; Platelet Count 302 K/uL (130-400); RDW Coefficient of Variation 13.6 % (11.5-14.5); RDW Standard Deviation 45.3 fL (36.4-46.3); Red Blood Count 4.49 M/uL (4.20-5.40); White Blood Count 8.99 K/ul (4.8-10.8)
[2025-03-13 00:23] LABS: Albumin Globulin Ratio 1.6 (0.9-2); Albumin Level 4.2 gm/dl (3.4-5.0); BUN Creatinine Ratio 20.5 (10-20); Bilirubin,Total 0.4 mg/dl (0.2-1.0); Calcium 9.7 mg/dl (8.6-10.3); Creatinine Clr Calc Pharmacy 72.7 ml/min; Globulin 2.7 gm/dl (2.5-4.0); Magnesium 2.2 mg/dl (1.7-2.4); Potassium 3.9 mmol/L (3.5-5.1); Total Protein 6.9 gm/dl (6.0-8.3)
[2025-03-13 00:30] LABS: Troponin I High Sensitivity 8.4 pg/ml (0-14)
[2025-03-13] MEDS: OPTIRAY 320 125ml IV ONE (00:31)
--- NOTE | 2025-03-13 00:35 | Emergency Department Note ---
Impression & Plan Transient global amnesia, Exertional dyspnea ED Provider Note CHIEF COMPLAINT: Memory difficulty HISTORY OF PRESENT ILLNESS: This 69 yo female patient past medical history of obesity, hyperlipidemia, hypertension, lumbar spinal stenosis presents to the emergency department with complaints of memory difficulty after mowing her lawn today. She states she had shortness of breath while exerting herself and had to take several breaks, eventually giving up on finishing the lawn. She called her daughter short while later mentioning that she was having difficulty remembering the events of the preceding day and names of her children/grandchildren. She does complain of a mild headache at this time. Patient has had no vomiting, diarrhea or abdominal pain. REVIEW OF SYSTEMS: A review of systems was performed with positives and pertinent negatives listed in the history of present illness. 10 systems were reviewed and are otherwise negative. ALLERGIES: see below MEDICATIONS: see below PMH: see below SOCIAL HISTORY: see below DDx: Intracranial hemorrhage, embolic stroke, transient global amnesia, dehydration, UTI, metabolic abnormality, intracranial mass, seizure among others. PHYSICAL EXAM: Vital signs reviewed. General: Well-appearing 69-year-old female, in no significant distress. HEENT: No scleral icterus, PERRLA, neck supple. Atraumatic. Cardiovascular: Regular rate and rhythm, no extra sounds. Pulmonary: Clear to auscultation bilaterally, normal work of breathing. Abdomen: Soft, nontender, nondistended, positive bowel sounds. Musculoskeletal: Atraumatic, no peripheral edema. Neurologic: Patient awake alert and oriented x 3, speech is clear. Follows commands. Cranial nerves II through XII are grossly intact. Intact [id number] and a negative pronator drift. Equal strength in all 4 extremities. Skin: Warm, dry, no rash EMERGENCY DEPARTMENT COURSE/MDM: This pt was evaluated and appeared to be in no distress. IV access was obtained and lab work was drawn. PT was placed on the termite helper and noted to be in a NSR. EKG reveals no evidence of acute ischemia. Lab work is reassuring, HS trop is negative. CT head and CTA head and neck are negative for acute process. Pt was given tylenol, fentanyl and zofran for her headache. Pt was advised of the findings and plan and agreed. Pt's case was discussed with the hospitalist service who will admit the pt for further management. MONITORING: An order for cardiac monitoring was placed and the patient is noted to be in a normal sinus rhythm at 74 beats per minute. RADIOLOGY: Head CT to my interpretation reveals no acute process. CTA head IMPRESSION: 1. No evidence of stenosis or aneurysm. No evidence of dissection. CTA neck: IMPRESSION: 1. No evidence of stenosis or aneurysm. No evidence of dissection. 2. Few small calcified atheromatous plaques are noted involving bilateral carotid bulbs, origin of right vertebral artery causing insignificant luminal stenosis. EKG:to my interpretation reveals a NSR at 64 bpm, normal ST segments. QTc 463. No PVC, no PAC. DISPOSITION:Admit Past Med/Surg History Problem List (Updated 03/17/25 @ 18:41 by Jonelle Jordan MD) Exertional dyspnea (Acute) Dyspnea on exertion Mild dehydration Transient global amnesia (Acute) Right knee pain Stenosis, spinal, lumbar Severe at L3-4 Vitamin D deficiency due to chronic kidney disease Degenerative lumbar spinal stenosis Lumbar radicular pain Low back pain radiating to right leg Hypertension HLD (hyperlipidemia) Hair loss Colon cancer screening Breast cancer screening by mammogram Vitamin B deficiency Postmenopausal estrogen deficiency Obesity (BMI 35.0-39.9 without comorbidity) Celiac disease Leg pain, right Medical History History of COVID-19 2020 Hypertension Hyperlipidemia no meds > just garlic supplement Depression with anxiety no meds > controlled Cervical radiculopathy Distal radius fracture, left cast, no surgery > resolved External hemorrhoid Dyshidrotic eczema Obesity Degenerative disc disease Osteoarthritis Urinary urgency Celiac disease Surgical History S/P total knee arthroplasty left History of dilatation and curettage History of section X 2 History of esophagogastroduodenoscopy (EGD) History of colonoscopy History of tooth extraction S/P knee surgery right knee tendon repair Family History Family/Other Colorectal cancer Hypertension Father Family history of diabetes mellitus Myocardial infarction Denies family history of Ovarian cancer Prostate cancer Breast cancer Social History Smoking Status: Never smoker Second Hand Exposure: No; Do You Dip or Chew Tobacco: No; Hx Alcohol Use: No Hx Substance Use: No Preferred Language: Cambodian Communication Ability: Effective Visual Impairment: No Limitations Hearing Ability: Normal District Or District Office Director Required: No Beliefs That Will Affect Care: None marital status: / Current Living Situation: Alone current occupational status: retired 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 [employer] Feels Safe at Home: Yes Childhood Exposure to Second-Hand Smoke: Yes Dental Care, Regularly: No Physical Activity Frequency: Does not Exercise Seatbelt Use: always Sunscreen Use: Yes Assistive Devices: Walker Allergies Allergies Allergy/AdvReac Type Severity Reaction Status Date / Time gluten Allergy Intermediate Celiac Verified 02/11/25 10:07 disease No Known Drug Allergies Allergy Unknown Verified 02/11/25 10:07 Home Meds Home Medications Medication Instructions Recorded Confirmed [id number] carb-vit K 1 tab PO DAILY 09/05/19 03/15/25 18 mg iron-400 mcg-500 mg tablet (One-A-Day Womens Formula) ascorbate calcium (vitamin C) 500 500 mg PO DAILY 10/11/23 03/15/25 mg tablet cholecalciferol (vitamin D3) 25 25 mcg PO DAILY 10/11/23 03/15/25 mcg (1,000 unit) capsule calcium carbonate (Calcium 600) 600 mg PO DAILY 07/16/24 03/15/25 Previous Rx's Medication Instructions Recorded triamcinolone acetonide 0.1 % 1 applic topical BID #30 grams 04/02/24 topical cream aspirin 81 mg tablet,delayed 81 mg PO DAILY #90 tabs 03/14/25 release furosemide 20 mg tablet (Lasix) 20 mg PO .qam as directed #30 tabs 03/14/25 metoprolol succinate 25 mg 25 mg PO DAILY #30 tabs 03/14/25 tablet,extended release 24 hr potassium chloride 20 mEq 20 meq PO DAILY PRN ONLY when you 03/14/25 tablet,extended release take furosemide diuretic #30 tabs Results & Data (ED) Vital Signs Vital Signs - 24 hr 03/12/25 23:37 03/13/25 00:01 03/13/25 00:06 Temperature 36.6 C Temperature Source Temporal Artery Scan Pulse Rate 72 Pulse Rate [Apical] 75 Pulse Rhythm Regular Respiratory Rate 18 20 Respiratory Effort / Characteristics Non-Labored Respiratory Depth Normal Blood Pressure 197/82 H Blood Pressure [Left Arm] 162/78 H Blood Pressure Mean 120 Blood Pressure Mean [Left Arm] 106 Pulse Oximetry 96 95 97 Oxygen Delivery Method Room Air Room Air Room Air Sepsis Recent Fever Within 48 Hours No Sepsis New/Unexplained Change in Mental Status No Sepsis Action Taken by Nursing No Action Required 03/13/25 00:36 Temperature Temperature Source Pulse Rate 74 Pulse Rate [Apical] Pulse Rhythm Respiratory Rate Respiratory Effort / Characteristics Respiratory Depth Blood Pressure Blood Pressure [Left Arm] Blood Pressure Mean Blood Pressure Mean [Left Arm] Pulse Oximetry Oxygen Delivery Method Sepsis Recent Fever Within 48 Hours Sepsis New/Unexplained Change in Mental Status Sepsis Action Taken by Intermediate Medications Current Medication List: was personally reviewed by me Laboratory Data Attestation: I reviewed the patient's lab results. 03/12/25 23:52 03/14/25 05:18 Lab Results 03/12/25 03/13/25 Range/Units 23:52 02:10 WBC 8.99 (4.8-10.8) K/ul RBC 4.49 (4.20-5.40) M/uL Hgb 13.7 (12.0-16.0) g/dl Hct 40.7 (37.0-47.0) % MCV 90.6 (80.0-100.0) fL MCH 30.5 (25.0-34.0) pg MCHC 33.7 (32.0-36.0) g/dL RDW Std Deviation 45.3 (36.4-46.3) fL RDW Coeff of Bebeto 13.6 (11.5-14.5) % Plt Count 302 (130-400) K/uL MPV 10.2 (9.4-12.4) fL Immature Gran % (Auto) 0.3 % Neut % (Auto) 61.7 % Lymph % (Auto) 26.0 % Worth % (Auto) 9.7 % Eos % (Auto) 1.7 % Baso % (Auto) 0.6 % Neut # (Auto) 5.55 (1.40-6.50) K/uL Lymph # (Auto) 2.34 (1.20-3.40) K/uL Worth # (Auto) 0.87 H (0.11-0.59) K/uL Eos # (Auto) 0.15 (0.00-0.50) K/uL Baso # (Auto) 0.05 (0.00-0.20) K/uL Immature Gran # (Auto) 0.03 (0.01-0.20) K/uL PT 10.9 (9.0-12.0) Seconds INR 1.0 (0.9-1.1) APTT 31 (21-31) Seconds PTT Ratio 1.2 Sodium 140 (136-145) mmol/L Potassium 3.9 (3.5-5.1) mmol/L Chloride 109 H (98-107) mmol/L Carbon Dioxide 24 (21-32) mmol/L Anion Gap 7 (3-11) BUN 16 (6-23) mg/dl Creatinine 0.78 (0.6-1.2) mg/dl Est Cr Clr Drug Dosing 72.7 ml/min eGFR 83.20 BUN/Creatinine Ratio 20.5 H (10-20) Glucose 97 (70-99(Fasting)) mg/dl Calcium 9.7 (8.6-10.3) mg/dl Magnesium 2.2 (1.7-2.4) mg/dl Total Bilirubin 0.4 (0.2-1.0) mg/dl AST 20 (13-39) U/L ALT 21 (7-52) U/L Alkaline Phosphatase 69 (34-104) U/L Troponin I High Sens 8.4 (0-14) pg/ml Total Protein 6.9 (6.0-8.3) gm/dl Albumin 4.2 (3.4-5.0) gm/dl Globulin 2.7 (2.5-4.0) gm/dl Albumin/Globulin Ratio 1.6 (0.9-2) Urine Color Yellow Urine Appearance Clear (Clear) Urine pH 5.0 (4.5-7.5) Ur Specific [place] > 1.045 H (1.000-1.030) Urine Protein Negative (Negative) Urine Glucose (UA) Negative (Negative) Urine Ketones Negative (Negative) Urine Blood Negative (Negative) Urine Nitrite Negative (Negative) Urine Bilirubin Negative (Negative) Urine Urobilinogen Negative (Negative) Ur Leukocyte Esterase Negative (Negative) Administered Medications Discontinued Medications Acetaminophen (Acetaminophen 500 Mg Tab) 1,000 mg PO NOW STA Stop: 03/13/25 00:36 Last Admin: 03/13/25 00:45 Dose: 1,000 mg Documented By: KMF Acetaminophen (Acetaminophen 325 Mg Tab) 650 mg PO Q4H PRN PRN Reason: Pain or Fever Stop: 04/12/25 05:24 Last Admin: 03/13/25 14:45 Dose: 650 mg Documented By: Admin: 03/13/25 08:33 Dose: 650 mg Documented By: SHANKAR Fentanyl Citrate (Fentanyl Citrate Pf 100 Mcg/2 Ml Vial) 50 mcg IV NOW STA Stop: 03/13/25 02:51 Last Admin: 03/13/25 03:07 Dose: 50 mcg Documented By: AUGUSTINE Furosemide (Furosemide 20 Mg Tab) 20 mg PO ONE STA Stop: 03/13/25 17:01 Last Admin: 03/13/25 18:31 Dose: 20 mg Documented By: HOSSEIN Furosemide (Furosemide 20 Mg Tab) 20 mg PO NOW ONE Stop: 03/14/25 10:20 Last Admin: 03/14/25 10:37 Dose: 20 mg Documented By: MERLY Sodium Chloride (Nss) 500 mls @ 999 mls/hr IV .Q31M ONE Stop: 03/13/25 02:51 Last Infusion: 03/13/25 04:05 Dose: Infused Documented By: Admin: 03/13/25 03:10 Dose: 999 mls/hr Documented By: AUGUSTINE Sodium Chloride (Nss) 1,000 mls @ 150 mls/hr IV .Q6H40M RONNIE Stop: 03/13/25 09:09 Last Infusion: 03/13/25 09:10 Dose: Infused Documented By: Infusion: 03/13/25 04:05 Dose: 150 mls/hr Documented By: Infusion: 03/13/25 03:21 Dose: 0 mls/hr Documented By: Admin: 03/13/25 03:10 Dose: 150 mls/hr Documented By: AUGUSTINE Ioversol (Optiray 320 125ml) 118 ml IV ONCE ONE Stop: 03/13/25 00:32 Last Admin: 03/13/25 00:31 Dose: 118 ml Documented By: MARTINEZ Ondansetron HCl (Ondansetron Inj 2 Mg/Ml 2 Ml Vial) 4 mg IV NOW STA Stop: 03/13/25 02:51 Last Admin: 03/13/25 03:07 Dose: 4 mg Documented By: AUGUSTINE Potassium Chloride (Potassium Chloride Crtab 20 Meq Tabcr) 20 meq PO NOW STA Stop: 03/13/25 17:01 Last Admin: 03/13/25 18:31 Dose: 20 meq Documented By: RRR Imaging Data Radiologist's Impression: Head CT 03/12/25 23:52 EXAM: CT head/brain wo con CLINICAL HISTORY: neuro deficit, acute stroke suspected TECHNIQUE: Multiple axial images are obtained from the skull base to the vertex without contrast. CT scan was performed according to ALARA (as low as reasonably achievable). COMPARISON: 01/22/2018 16:28:59 DIGITAL OPERATIONS ANALYST FINDINGS: The brain shows normal morphology, attenuation, and volume for age. No evidence of space occupying lesion, hemorrhage, edema, mass effect, midline shift, extra axial collection, or hydrocephalus is noted. Ventricles, sulci, and basal cisterns are symmetric and normal in size and configuration. The gilmore-white matter differentiation is preserved. Visualized paranasal sinuses and mastoid air cells are well aerated. Orbital contents are within normal limits. Bony structures are intact. IMPRESSION: 1. CT scan is negative for large territorial ischemic / hemorrhagic stroke. 2. Non contrast CT can be negative in the setting of hyperacute infarct/small ischemic infarct and further evaluation with diffusion weighted MRI is recommended as clinically appropriate. 3. No interval changes. Electronically signed by Thaddeus Phillips 03-13-2025 02:01 AM Head CTA 03/12/25 23:52 EXAM: CT angio head w con CLINICAL HISTORY: neuro deficit, acute stroke suspected TECHNIQUE: Contrast enhanced thin slice CT angiography scan of the cerebral vessels was performed with intravenous contrast. Angiographic images were processed, 3D MIP images were acquired for interpretation. Contiguous axial images were obtained. Reformatted coronal and sagittal images were also reviewed. If IV contrast material had not been administered, the likelihood of detecting abnormalities relevant to the patient's condition would have been substantially decreased. CT scan was performed according to ALARA (as low as reasonably achievable). COMPARISON: None. FINDINGS: Bilateral internal carotid arteries show normal course, calibre and opacification in the canalicular and cavernous part. Their division into the anterior cerebral artery and middle cerebral artery is defined. A1, A2 segments are normal on both the sides. M1, M2 segments are normal on both the sides. Right vertebral artery is normal in course and caliber. Left vertebral artery is normal in course and caliber. Basilar artery shows normal course, caliber and opacification. Its division into the posterior cerebral arteries is defined. Bilateral P1 and P2 segments are normal. Visualized venous structures show normal opacification. No evidence of intracranial aneurysm or AV malformation is seen. IMPRESSION: 1. No evidence of stenosis or aneurysm. No evidence of dissection. Electronically signed by Thaddeus Phillips 03-13-2025 02:13 AM Neck CTA 03/12/25 23:52 EXAM: CT angio neck with con CLINICAL HISTORY: neuro deficit, acute stroke suspected TECHNIQUE: Contrast enhanced thin slice CT angiography scan of the carotid vessels was performed with intravenous contrast. Angiographic images were processed, 3D MIP images were acquired for interpretation. Contiguous axial images were obtained. Reformatted coronal and sagittal images were also reviewed. If IV contrast material had not been administered, the likelihood of detecting abnormalities relevant to the patient's condition would have been substantially decreased. CT scan was performed according to ALARA (as low as reasonably achievable). COMPARISON: None. FINDINGS: Included great vessels of the aortic arch are grossly unremarkable. Few small calcified atheromatous plaques are noted involving bilateral carotid bulbs, origin of right vertebral artery causing insignificant luminal stenosis. Common carotid artery, carotid Bulb, internal carotid artery, and origin of the external carotid artery are well opacified. Vertebral arteries are well opacified. Jugular veins are well opacified. Mosaic attenuation is noted involving visualized bilateral lung parenchyma. This could be secondary to underlying small airway disease or perfusion abnormality. Thyroid gland appears unremarkable. IMPRESSION: 1. No evidence of stenosis or aneurysm. No evidence of dissection. 2. Few small calcified atheromatous plaques are noted involving bilateral carotid bulbs, origin of right vertebral artery causing insignificant luminal stenosis. Electronically signed by Thaddeus Phillips 03-13-2025 02:03 AM Brain MRI 03/13/25 03:08 EXAM: MR brain wo con CLINICAL HISTORY: stroke workup TECHNIQUE: Multisequential and multiplanar images of the brain were submitted for review without contrast. COMPARISON: CT scan dated 12 March 2025. FINDINGS: The brain shows normal morphology, signal intensity, and volume for age. Diffusion-weighted sequences show no evidence of acute ischemic infarction. No focal parenchymal lesions are seen. No intracranial hemorrhage, mass effect, midline shift, extra-axial collection, or hydrocephalus is identified. Ventricles, sulci, and basal cisterns are symmetric and normal in size and configuration. Midline structures including the pituitary gland, corpus callosum, pineal region, and brainstem are unremarkable. The craniovertebral junction is within normal limits. No calvarial abnormalities are identified. The paranasal sinuses and mastoid air cells are clear. Orbital structures are unremarkable. Appropriate flow voids are present in the visualized intracranial vessels. IMPRESSION: 1. No significant/acute neuroparenchymal abnormality detected. 2. No evidence of acute infarct/intracranial hemorrhage. No significant interval new abnormality. Electronically signed by Thaddeus Phillips 03-13-2025 06:26 AM Discharge Plan Visit Data Chief Complaint: Confusion Stated Complaint: CONFUSION, TEMPORAL MEMORY LOST ED Provider: Jonelle Jordan Discharge Problem: Transient global amnesia, Exertional dyspnea Patient Disposition: Admitted As Inpatient Discharge Instructions Interventions: ED Discharge Assessment Last Done: 03/13/25 12:20
[2025-03-13 00:38] LABS: Partial Thromboplastin Ratio 1.2; Partial Thromboplastin Time 31 Seconds (21-31); Prothrombin Time 10.9 Seconds (9.0-12.0)
[2025-03-13] MEDS: ACETAMINOPHEN 500 MG TAB PO STA (00:45)
--- NOTE | 2025-03-13 02:01 | CT Scan Report ---
EXAM: CT head/brain wo con CLINICAL HISTORY: neuro deficit, acute stroke suspected TECHNIQUE: Multiple axial images are obtained from the skull base to the vertex without contrast. CT scan was performed according to ALARA (as low as reasonably achievable). 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 No evidence of space occupying lesion, hemorrhage, edema, mass effect, midline shift, extra axial collection, or hydrocephalus is noted. Ventricles, sulci, and basal cisterns are symmetric and normal in size and configuration. The gilmore-white matter differentiation is preserved. Visualized paranasal sinuses and mastoid air cells are well aerated. Orbital contents are within normal limits. Bony structures are intact. IMPRESSION: 1. CT scan is negative for large territorial ischemic / hemorrhagic stroke. 2. Non contrast CT can be negative in the setting of hyperacute infarct/small ischemic infarct and further evaluation with diffusion weighted MRI is recommended as clinically appropriate. 3. No interval changes. Electronically signed by Thaddeus Phillips 03-13-2025 02:01 AM
--- NOTE | 2025-03-13 02:04 | CT Scan Report ---
EXAM: CT angio neck with con CLINICAL HISTORY: neuro deficit, acute stroke suspected TECHNIQUE: Contrast enhanced thin slice CT angiography scan of the carotid vessels was performed with intravenous contrast. Angiographic images were processed, 3D MIP images were acquired for interpretation. Contiguous axial images were obtained. Reformatted coronal and sagittal images were also reviewed. If IV contrast material had not been administered, the likelihood of detecting abnormalities relevant to the patient's condition would have been substantially decreased. CT scan was performed according to ALARA (as low as reasonably achievable). COMPARISON: None. FINDINGS: Included great vessels of the aortic arch are grossly unremarkable. Few small calcified atheromatous plaques are noted involving bilateral carotid bulbs, origin of right vertebral artery causing insignificant luminal stenosis. Common carotid artery, carotid Bulb, internal carotid artery, and origin of the external carotid artery are well opacified. Vertebral arteries are well opacified. Jugular veins are well opacified. Mosaic attenuation is noted involving visualized bilateral lung parenchyma. This could be secondary to underlying small airway disease or perfusion abnormality. Thyroid gland appears unremarkable. IMPRESSION: 1. No evidence of stenosis or aneurysm. No evidence of dissection. 2. Few small calcified atheromatous plaques are noted involving bilateral carotid bulbs, origin of right vertebral artery causing insignificant luminal stenosis. Electronically signed by Thaddeus Phillips 03-13-2025 02:03 AM
--- NOTE | 2025-03-13 02:13 | CT Scan Report ---
EXAM: CT angio head w con CLINICAL HISTORY: neuro deficit, acute stroke suspected TECHNIQUE: Contrast enhanced thin slice CT angiography scan of the cerebral vessels was performed with intravenous contrast. Angiographic images were processed, 3D MIP images were acquired for interpretation. Contiguous axial images were obtained. Reformatted coronal and sagittal images were also reviewed. If IV contrast material had not been administered, the likelihood of detecting abnormalities relevant to the patient's condition would have been substantially decreased. CT scan was performed according to ALARA (as low as reasonably achievable). COMPARISON: None. FINDINGS: Bilateral internal carotid arteries show normal course, calibre and opacification in the canalicular and cavernous part. Their division into the anterior cerebral artery and middle cerebral artery is defined. A1, A2 segments are normal on both the sides. M1, M2 segments are normal on both the sides. Right vertebral artery is normal in course and caliber. Left vertebral artery is normal in course and caliber. Basilar artery shows normal course, caliber and opacification. Its division into the posterior cerebral arteries is defined. Bilateral P1 and P2 segments are normal. Visualized venous structures show normal opacification. No evidence of intracranial aneurysm or AV malformation is seen. IMPRESSION: 1. No evidence of stenosis or aneurysm. No evidence of dissection. Electronically signed by Thaddeus Phillips 03-13-2025 02:13 AM
[2025-03-13 02:19] LABS: Appearance Urine Clear (Clear); Bilirubin Urine Negative (Negative); Blood Urine Negative (Negative); Color Urine Yellow; Glucose Urine UA Negative (Negative); Ketones Urine Negative (Negative); Leukocyte Esterase Urine Negative (Negative); Nitrite Urine Negative (Negative); Protein Urine Negative (Negative); Specific Gravity Urine > 1.045 (1.000-1.030); Urobilinogen Urine Negative (Negative)
[2025-03-13] MEDS: fentaNYL citrate PF 100 MCG/2 ML VIAL IV STA (03:07)
[2025-03-13] MEDS: ONDANSETRON INJ 2 MG/ML 2 ML VIAL IV STA (03:07)
[2025-03-13] MEDS: SODIUM CHLORIDE 0.9% 1,000 ML IV SCH (03:10)
[2025-03-13] MEDS: SODIUM CHLORIDE 0.9% 500 ML IV ONE (03:10)
--- NOTE | 2025-03-13 03:11 | History & Physical Report ---
Date of Service March 13, 2025 Assessment & Plan (1) Transient global amnesia: (2) Mild dehydration: (3) HLD (hyperlipidemia): (4) Hypertension: Plan Patient is 69-year-old female past medical history of hyperlipidemia and hypertension. She presented to the ER after an episode today after cutting grass when she revealed that she didn't remember any of her family members names. Started at approximately 1600 and is improved at time of admission. She denies any other strokelike symptoms. CT and CTAs in ED essentially negative, patient being admitted for stroke workup including MRI of brain. #transient global amnesia - CVA vs transient global amnesia. Symptoms present but improved by time of admission. Head CT, CTAs essentially negative for acute changes. EKG showed NSR, no previous echo. - stroke without TNK order set - Q4H neuro checks - Allow for permissive hypertension with goal parameters 220/110 until MRI resulted - Telemetry monitoring - MRI ordered - lipid panel and A1C with AM labs - TSH with Am labs - defer tx with aspirin or cholesterol control on admission given likely transient global amnesia #mild dehydration - UA showed elevated specific gravity, patient feels dry. - continue NSS @ 150 mL/hour started in ED x1L #HLD - controlled with supplements at home #HTN no current medical management VTE ppx: SCDs, low risk Dispo: Med/tele Anticipate dc home 03/13 after MRI. Admission and Anticipated Discharge Date Admission Date: 03/13/25 History of Present Illness Chief Complaint: confusion Primary Care Provider: Jorge Rangel DO Patient is 69-year-old female past medical history of hyperlipidemia and hypertension. She presented to the ER after an episode today after cutting grass when she revealed that she didn't remember any of her family members names. Started at approximately 1600 and is improved at time of admission. She denies any other strokelike symptoms. CT and CTAs in ED essentially negative, patient being admitted for stroke workup including MRI of brain. Patient presents with daughter at bedside. She states she was cutting her grass when she developed dyspnea, which she has had on exertion for approximately 1 week. However daughter bedside stated it has been going on for much longer and her mother has been less active and not going out much recently. Patient then stated she realized she could not remember any of her kids names so she called her daughter who informed the patient that she may be dehydrated. Patient drank a glass of water and felt better. Couple hours later patient called her daughter again because she was having difficulty with remembering her families names still. Patient at bedside stated she cannot remember what she did this morning. She does state that her memory of her family is resolved/improved. Patient denies any other strokelike symptoms with the episode today. She stated a couple days ago she had several episodes of numbness of her left hand and bilateral feet that lasted for several seconds. She also endorses a dull achy pain in her right lower extremity for approximately 3 to 4 weeks when she is sleeping. Pain is not reproducible by palpation. She does endorse 1 episode of diarrhea several days ago. ROS otherwise essentially negative, no chills, dizziness, lightheadedness, headaches, vision changes, slurred speech, facial droop, current numbness or tingling, dyspnea, chest pain, abdominal pain, nausea, vomiting. She denies nicotine use or alcohol use. She controls her blood pressure and hyperlipidemia with supplements, has declined statins in the past and not on any prescribed medical management for blood pressure. She denie s past history of stroke or family history of stroke. Allergies Allergy/AdvReac Type Severity Reaction Status Date / Time gluten Allergy Intermediate Celiac Verified 02/11/25 10:07 disease No Known Drug Allergies Allergy Unknown Verified 02/11/25 10:07 Home Medications Medication Instructions Recorded Confirmed Type mazagflk-vqw-lkgr-FA-Ca carb-vit K 1 tab PO DAILY 09/05/19 03/13/25 History 18 mg iron-400 mcg-500 mg tablet (One-A-Day Womens Formula) ascorbate calcium (vitamin C) 500 500 mg PO DAILY 10/11/23 03/13/25 History mg tablet cholecalciferol (vitamin D3) 25 25 mcg PO DAILY 10/11/23 03/13/25 History mcg (1,000 unit) capsule garlic 300 mg capsule 300 mg PO DAILY 10/11/23 03/13/25 History glucosamine 500 ub-tvycntnwk-afd 1 tab PO DAILY 10/11/23 03/13/25 History no1 416.6 mg-C 20 ku-lcot-nhau tablet triamcinolone acetonide 0.1 % 1 applic topical BID #30 grams 04/02/24 03/13/25 Rx topical cream calcium carbonate (Calcium 600) 600 mg PO DAILY 07/16/24 03/13/25 History Past Med/Surg History Problem List (Updated 03/13/25 @ 04:03 by Astrid Nam PA-C) Mild dehydration Transient global amnesia Right knee pain Stenosis, spinal, lumbar Severe at L3-4 Vitamin D deficiency due to chronic kidney disease Degenerative lumbar spinal stenosis Lumbar radicular pain Low back pain radiating to right leg Hypertension HLD (hyperlipidemia) Hair loss Colon cancer screening Breast cancer screening by mammogram Vitamin B deficiency Postmenopausal estrogen deficiency Obesity (BMI 35.0-39.9 without comorbidity) Celiac disease Leg pain, right Medical History History of COVID-19 2020 Hypertension Hyperlipidemia no meds > just garlic supplement Depression with anxiety no meds > controlled Cervical radiculopathy Distal radius fracture, left cast, no surgery > resolved External hemorrhoid Dyshidrotic eczema Obesity Degenerative disc disease Osteoarthritis Urinary urgency Celiac disease Surgical History S/P total knee arthroplasty left History of dilatation and curettage History of section X 2 History of esophagogastroduodenoscopy (EGD) History of colonoscopy History of tooth extraction S/P knee surgery right knee tendon repair Family History Family/Other Colorectal cancer Hypertension Father Family history of diabetes mellitus Myocardial infarction Denies family history of Ovarian cancer Prostate cancer Breast cancer Social History Smoking Status: Never smoker Second Hand Exposure: No; Do You Dip or Chew Tobacco: No; Hx Alcohol Use: No Hx Substance Use: No Preferred Language: Kiswahili Communication Ability: Effective Visual Impairment: No Limitations Hearing Ability: Normal Manager Etl Required: No Beliefs That Will Affect Care: None marital status: / Current Living Situation: Alone current occupational status: retired 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 Non-toxic appearing. HEENT- EOMI, mucous membranes moist. Hearing grossly intact. Heart-normal S1 and S2. No murmurs, rubs or gallops. Lungs-clear bilaterally, no respiratory distress, no accessory muscle use. Abdomen-normal bowel sounds and soft. No ascites noted. Non-tender. Extremities- no clubbing, cyanosis, or edema. Rheumatologic-normal range of motion. Psychiatric-normal affect. Neurologic: PERRL, EOMI, accommodation nl, no face palsy, no dysarthria not confused Speech / Cognition: normal speech Motor/Sensory: no sensory deficit Results & Data Results & Data Vital Signs (Past 12 Hours) Vital Signs Temp Pulse Pulse Resp BP BP Pulse Ox 03/13/25 02:13 78 20 138/63 97 03/13/25 01:36 58 L 16 95 03/13/25 01:00 65 18 169/86 H 95 03/13/25 00:36 74 03/13/25 00:06 97 03/13/25 00:01 75 20 162/78 H 95 03/12/25 23:37 36.6 C 72 18 197/82 H 96 O2 Del Method 03/13/25 02:13 Room Air 03/13/25 01:36 Room Air 03/13/25 01:00 Room Air 03/13/25 00:36 03/13/25 00:06 Room Air 03/13/25 00:01 Room Air 03/12/25 23:37 Room Air Laboratory Results reviewed CBC, CMP, pt/inr, magnesium, UA Diagnostic Findings reviewed head ct, neck cta, head cta Medications Administered ed - fentanyl 50 mcg, 500 NSS bolus, Tylenol 1g po, Zofran 4mg iv ECG Additional Comments: NSR rat 74 qtc 463 Code Status & VTE Plan Code Status conditional - would want CPR, no intubation VTE Prophylaxis Plan VTE Prophylaxis will be ordered: Yes Supervising Physician Co-Signing Physician Notes I personally saw and examined the patient. I independently reviewed the labs, EKG, imaging, problem list, medication list, past medical history and family history. I verified all falk points and agree with Astrid Nam PA-C with the following exceptions and/or additions: 69-year-old female presents to the ER with sudden onset memory deficit. Already doing better. O/E A&Ox3, HS RRR, no murmurs, Chest CTAB, Abdo SNT, CN2-> 12 intact, UE/LE normal power and sensation b/l equal A/P Suspected global transient amnesia - MRI brain w/o IV contrast if negative can likely be discharged as memory already mostly back to baseline PG Care Time/CCT Total # of Minutes Spent Total Time Spent with Patient: Total time spent is greater than 50% in coordination of care (as documented) at patient's floor/unit and/or counseling patient: Coding Level of Care Code 44716 INT INP/OBS CARE 3/75MIN Diagnoses Transient global amnesia G45.4 Mild dehydration E86.0 HLD (hyperlipidemia) E78.5 Primary hypertension I10 Hypertension type: primary hypertension (4) Hypertension Hypertension type: primary hypertension Qualified Code(s): I10 - Essential (primary) hypertension
[2025-03-13] MEDS ORDERED: DOCUSATE SODIUM 100 MG CAP PO PRN (05:25)
[2025-03-13] MEDS ORDERED: PHARMACIST DISCHARGE MED REC CONSULT PRN (05:25)
[2025-03-13] MEDS ORDERED: MELATONIN 3 MG TAB PO PRN (05:25)
[2025-03-13] MEDS ORDERED: ONDANSETRON INJ 2 MG/ML 2 ML VIAL IV PRN (05:25)
--- NOTE | 2025-03-13 06:26 | Magnetic Resonance Report ---
EXAM: MR brain wo con CLINICAL HISTORY: stroke workup TECHNIQUE: Multisequential and multiplanar images of the brain were submitted for review without contrast. COMPARISON: CT scan dated 12 March 2025. FINDINGS: The brain shows normal morphology, signal intensity, and volume for age. Diffusion-weighted sequences show no evidence of acute ischemic infarction. No focal parenchymal lesions are seen. No intracranial hemorrhage, mass effect, midline shift, extra-axial collection, or hydrocephalus is identified. Ventricles, sulci, and basal cisterns are symmetric and normal in size and configuration. Midline structures including the pituitary gland, corpus callosum, pineal region, and brainstem are unremarkable. The craniovertebral junction is within normal limits. No calvarial abnormalities are identified. The paranasal sinuses and mastoid air cells are clear. Orbital structures are unremarkable. Appropriate flow voids are present in the visualized intracranial vessels. IMPRESSION: 1. No significant/acute neuroparenchymal abnormality detected. 2. No evidence of acute infarct/intracranial hemorrhage. No significant interval new abnormality. Electronically signed by Thaddeus Phillips 03-13-2025 06:26 AM
[2025-03-13] MEDS: ACETAMINOPHEN 325 MG TAB PO PRN (08:33)
--- NOTE | 2025-03-13 10:28 | Electrocardiogram Report ---
Test Reason : Blood Pressure : */* mmHG Vent. Rate : 74 BPM Atrial Rate : 74 BPM P-R Int : 144 ms QRS Dur : 80 ms QT Int : 418 ms P-R-T Axes : 41 11 26 degrees QTcB Int : 463 ms Normal sinus rhythm Normal ECG When compared with ECG of 01-Oct-2019 14:40, No significant change was found Confirmed by Gio Ivy ([id number]) on 03/13/2025 10:28:17 AM Referred By: REFERRED SELF Confirmed By: Gio Ivy
--- NOTE | 2025-03-13 14:45 | XCELERA ---
[id number] \\[facility]\[email or web address]_[id number]
--- NOTE | 2025-03-13 16:34 | XRay Report ---
Clinical History: Dyspnea Technique: PA and lateral views of the chest were obtained Comparison is made to the prior examination dated 10/01/2019 Findings: There are no confluent pulmonary infiltrates. The heart size is within normal limits. No pleural effusion or pneumothorax is seen. There is no definite pulmonary nodule. No fracture is noted. No foreign body is seen Impression: No active disease Electronically signed by Parish Patel 03-13-2025 4:34 PM
--- NOTE | 2025-03-13 18:27 | Hospitalist Progress Note ---
Date of Service March 13, 2025 Assessment & Plan (1) Transient global amnesia: (2) HLD (hyperlipidemia): (3) Hypertension: (4) Dyspnea on exertion: Plan 69yo female with hyperlipidemia and hypertension. Presented after having had an episode in which she couldn't recall the names of family members, couldn't recollect the events of the previous day, etc. Symptoms started about 4pm on day of admission and within several hours her cognition & memory returned to baseline. #transient global amnesia - * suspected transient global amnesia vs TIA event; favor former * TIA/stroke w/u negative - MRI Brain w/o acute or old CVA; CTA head/neck without stenotic lesions or aneurysm; echo without source of thrombus * check lipid panel, TSH, and HbA1C in am tomorrow * plan to recommend Rx of lipids if LDL >100 and adding low-dose asa 81mg daily as well in the event this was a frontal lobe TIA #Hyperlipidemia - * check lipid profile in am tomorrow * consider statin if LDL is high #HTN * nearly all BPs have been high since presentation * follow for now, but low threshold to begin Rx for such #dyspnea on exertion - * etiology uncertain * echo with normal EF, normal valve function, normal wall motion * cxr - 2-view - w/o infiltrates * BNP mildly elevated - trial lasix 20mg po x 1 to see if this helps her breathing and her lung exam * multiple CAD risk factors - plan for exercise stress echo in am #headache - * patient did not sleep at all last pm in the ER * suspect lack of sleep, stress of last 24 hours, etc all to blame * follow for now #celiac disease - * gluten free diet re-eval tomorrow after stress test is back 2nd visit to bedside late in the day to go over cxr results, plan of care, etc. son updated during that 2nd visit Admission and Anticipated Discharge Date Admission Date: March 13, 2025 Subjective patient reports her memory/cognition is at baseline today during the visit she was very tearful -- asks if she is developing dementia prior to yesterday's event she has been living independently and not having any memory issues she is anxious as she thinks she "might need to leave her house" in about a year and not live alone any longer she has a large property and feel she can't keep up main complaint is that of dyspnea on exertion present for weeks (maybe months??) but much worse in the last 1-2 weeks walking up 2 flights of stairs leads to VASQUEZ she had VASQUEZ with 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 this is unlike her denies chest pain resting makes the dyspnea go away she does endorse intermittent edema of her legs Review of Systems Review of Systems: gen - no fevers or chills or flu-like/viral illnesses cv - no chest pain; +LE edema (intermittent) pulm - no dyspnea at rest; no cough GI - no vomiting or abd pain Physical Exam Physical Exam: gen - NAD, but quite tearful neck - no obvious JVD mouth - MMM heart - RRR, s1 s2, no murmur lungs - fine, dry, soft sounding b/l basilar rales, no wheezes, good airation abd - soft NT ND BS+ ext - trace edema b/l, pulses b/l feet 2+ neuro - no facial droop; good recall today; speech clear/fluent; strength 5/5 x 4 exts Results & Data Results & Data Vital Signs (Past 12 Hours) Vital Signs Temp Pulse Pulse Resp BP Pulse Ox O2 Del Method 03/13/25 16:00 36.7 C 67 16 164/84 H 98 Room Air 03/13/25 13:00 73 03/13/25 13:00 Room Air 03/13/25 12:33 36.7 C 69 20 159/73 H 98 Room Air 03/13/25 10:11 70 18 145/67 H 96 Room Air 03/13/25 06:53 71 Laboratory Results Laboratory Results - last 24 hr 03/12/25 03/13/25 03/13/25 23:52 02:10 16:03 PT 10.9 INR 1.0 APTT 31 PTT Ratio 1.2 POC Glucose B-Natriuretic Peptide 192 H Urine Color Yellow Urine Appearance Clear Urine pH 5.0 Ur Specific [place] > 1.045 H Urine Protein Negative Urine Glucose (UA) Negative Urine Ketones Negative Urine Blood Negative Urine Nitrite Negative Urine Bilirubin Negative Urine Urobilinogen Negative Ur Leukocyte Esterase Negative 03/13/25 19:23 PT INR APTT PTT Ratio POC Glucose 109 H B-Natriuretic Peptide Urine Color Urine Appearance Urine pH Ur Specific [place] Urine Protein Urine Glucose (UA) Urine Ketones Urine Blood Urine Nitrite Urine Bilirubin Urine Urobilinogen Ur Leukocyte Esterase Diagnostic Findings Head CT 03/12/25 23:52 EXAM: CT head/brain wo con CLINICAL HISTORY: neuro deficit, acute stroke suspected TECHNIQUE: Multiple axial images are obtained from the skull base to the vertex without contrast. CT scan was performed according to ALARA (as low as reasonably achievable). 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 No evidence of space occupying lesion, hemorrhage, edema, mass effect, midline shift, extra axial collection, or hydrocephalus is noted. Ventricles, sulci, and basal cisterns are symmetric and normal in size and configuration. The gil[place]-white matter differentiation is preserved. Visualized paranasal sinuses and mastoid air cells are well aerated. Orbital contents are within normal limits. Bony structures are intact. IMPRESSION: 1. CT scan is negative for large territorial ischemic / hemorrhagic stroke. 2. Non contrast CT can be negative in the setting of hyperacute infarct/small ischemic infarct and further evaluation with diffusion weighted MRI is recommended as clinically appropriate. 3. No interval changes. Electronically signed by Thaddeus Phillips 03-13-2025 02:01 AM Head CTA 03/12/25 23:52 EXAM: CT angio head w con CLINICAL HISTORY: neuro deficit, acute stroke suspected TECHNIQUE: Contrast enhanced thin slice CT angiography scan of the cerebral vessels was performed with intravenous contrast. Angiographic images were processed, 3D MIP images were acquired for interpretation. Contiguous axial images were obtained. Reformatted coronal and sagittal images were also reviewed. If IV contrast material had not been administered, the likelihood of detecting abnormalities relevant to the patient's condition would have been substantially decreased. CT scan was performed according to ALARA (as low as reasonably achievable). COMPARISON: None. FINDINGS: Bilateral internal carotid arteries show normal course, calibre and opacification in the canalicular and cavernous part. Their division into the anterior cerebral artery and middle cerebral artery is defined. A1, A2 segments are normal on both the sides. M1, M2 segments are normal on both the sides. Right vertebral artery is normal in course and caliber. Left vertebral artery is normal in course and caliber. Basilar artery shows normal course, caliber and opacification. Its division into the posterior cerebral arteries is defined. Bilateral P1 and P2 segments are normal. Visualized venous structures show normal opacification. No evidence of intracranial aneurysm or AV malformation is seen. IMPRESSION: 1. No evidence of stenosis or aneurysm. No evidence of dissection. Electronically signed by Thaddeus Phillips 03-13-2025 02:13 AM Neck CTA 03/12/25 23:52 EXAM: CT angio neck with con CLINICAL HISTORY: neuro deficit, acute stroke suspected TECHNIQUE: Contrast enhanced thin slice CT angiography scan of the carotid vessels was performed with intravenous contrast. Angiographic images were processed, 3D MIP images were acquired for interpretation. Contiguous axial images were obtained. Reformatted coronal and sagittal images were also reviewed. If IV contrast material had not been administered, the likelihood of detecting abnormalities relevant to the patient's condition would have been substantially decreased. CT scan was performed according to ALARA (as low as reasonably achievable). COMPARISON: None. FINDINGS: Included great vessels of the aortic arch are grossly unremarkable. Few small calcified atheromatous plaques are noted involving bilateral carotid bulbs, origin of right vertebral artery causing insignificant luminal stenosis. Common carotid artery, carotid Bulb, internal carotid artery, and origin of the external carotid artery are well opacified. Vertebral arteries are well opacified. Jugular veins are well opacified. Mosaic attenuation is noted involving visualized bilateral lung parenchyma. This could be secondary to underlying small airway disease or perfusion abnormality. Thyroid gland appears unremarkable. IMPRESSION: 1. No evidence of stenosis or aneurysm. No evidence of dissection. 2. Few small calcified atheromatous plaques are noted involving bilateral carotid bulbs, origin of right vertebral artery causing insignificant luminal stenosis. Electronically signed by Thaddeus Phillips 03-13-2025 02:03 AM Brain MRI 03/13/25 03:08 EXAM: MR brain wo con CLINICAL HISTORY: stroke workup TECHNIQUE: Multisequential and multiplanar images of the brain were submitted for review without contrast. COMPARISON: CT scan dated 12 March 2025. FINDINGS: The brain shows normal morphology, signal intensity, and volume for age. Diffusion-weighted sequences show no evidence of acute ischemic infarction. No focal parenchymal lesions are seen. No intracranial hemorrhage, mass effect, midline shift, extra-axial collection, or hydrocephalus is identified. Ventricles, sulci, and basal cisterns are symmetric and normal in size and configuration. Midline structures including the pituitary gland, corpus callosum, pineal region, and brainstem are unremarkable. The craniovertebral junction is within normal limits. No calvarial abnormalities are identified. The paranasal sinuses and mastoid air cells are clear. Orbital structures are unremarkable. Appropriate flow voids are present in the visualized intracranial vessels. IMPRESSION: 1. No significant/acute neuroparenchymal abnormality detected. 2. No evidence of acute infarct/intracranial hemorrhage. No significant interval new abnormality. Electronically signed by Thaddeus Phillips 03-13-2025 06:26 AM Chest X-Ray 03/13/25 15:39 Clinical History: Dyspnea Technique: PA and lateral views of the chest were obtained Comparison is made to the prior examination dated 10/01/2019 Findings: There are no confluent pulmonary infiltrates. The heart size is within normal limits. No pleural effusion or pneumothorax is seen. There is no definite pulmonary nodule. No fracture is noted. No foreign body is seen Impression: No active disease Electronically signed by Parish Patel 03-13-2025 4:34 PM PG Care Time/CCT Total # of Minutes Spent Total Time Spent with Patient: Total time spent is greater than 50% in coordination of care (as documented) at patient's floor/unit and/or counseling patient: Coding Level of Care Code 67251 SUB INP/OBS CARE 3/50MIN Diagnoses Transient global amnesia G45.4 HLD (hyperlipidemia) E78.5 Primary hypertension I10 Hypertension type: primary hypertension Dyspnea on exertion R06.09 (3) Hypertension Hypertension type: primary hypertension Qualified Code(s): I10 - Essential (primary) hypertension
[2025-03-13] MEDS: FUROSEMIDE 20 MG TAB PO STA (18:31)
[2025-03-13] MEDS: POTASSIUM CHLORIDE CRTAB 20 MEQ TABCR PO STA (18:31)
[2025-03-14 06:14] LABS: BUN Creatinine Ratio 21.7 (10-20); Chol HDL Ratio 4.5 (0-5); Creatinine Clr Calc Pharmacy 68.3 ml/min; Potassium 4.1 mmol/L (3.5-5.1)
[2025-03-14 06:29] LABS: Thyroid Stimulating Hormone 6.518 uIu/ml (0.300-4.500)
[2025-03-14 07:04] LABS: T4 Free Thyroxine 0.62 ng/dl (0.61-1.60)
[2025-03-14 07:41] VITALS: RESP 20
[2025-03-14 09:13] LABS: Estimated Average Glucose 111 mg/dl; Hemoglobin A1C 5.5 % (4.5-5.6)
--- NOTE | 2025-03-14 10:05 | XCELERA ---
[id number] \\[facility]\ISCV_PDF_Reports\[id number]
[2025-03-14] MEDS: FUROSEMIDE 20 MG TAB PO ONE (10:37)
[2025-03-14 11:16] VITALS: BP 159/80; PULSE 66; TEMP 97.7; O2SAT 97
--- NOTE | 2025-03-14 13:36 | Discharge Summary ---
Discharge Summary Date of Service date of admission - March 13, 2025 date of discharge - March 14, 2025 Principal Dx & Hospital Course #1 = Principal Diagnosis (1) Transient global amnesia: (2) HLD (hyperlipidemia): (3) Hypertension: (4) Dyspnea on exertion: (5) Abnormal thyroid function test: Plan 69yo female with hyperlipidemia and hypertension. Presented after having had an episode in which she couldn't recall the names of family members, couldn't recollect the events of the previous day, etc. Symptoms started about 4pm on day of admission and within several hours her cognition & memory returned to baseline. #suspected transient global amnesia - * suspected episode of transient global amnesia vs TIA event; favor former * TIA/stroke w/u negative - MRI Brain w/o acute or old CVA; CTA head/neck without stenotic lesions or aneurysm; echo without source of thrombus * telemetry was normal while here * Lipid panel: total cholesterol 252; LDL 174; HDL 56; triglycerides 111 * if this was an atypical TIA I did recommend low-dose aspirin 81mg daily * suggested she speak with her PCP about initiating cholesterol treatment as her lipids have been high for several years #Hyperlipidemia - * as above #HTN * nearly all BPs were high during the admission * recommended initiation of anti-hypertensive medication --> discharged on metoprolol succinate 25mg daily #dyspnea on exertion - * etiology not fully certain, but BNP mildly elevated at 192 (normal <100) * she did have mild b/l basilar rales on exam early in the stay and she was given a trial of lasix for such * she reported about a 5 pound weight gain in the days leading up to presentation, and had had lower extremity edema * her lung exam did improve, and she reported less dyspnea with the lasix * echo with normal EF, normal valve function, normal wall motion * cxr - 2-view - no discrete infiltrates * as an incidental finding on CTA neck - "Mosaic attenuation is noted involving visualized bilateral lung parenchyma" * mosaic attenuation has a broad differential - pulmonary edema, infectious etiology, embolic disease/vascular disease, etc. * to be complete, since she has multiple CAD risk factors, we performed exercise stress echo * this returned negative - no wall motion abnormalities, no chest pain during the study, no EKG changes during the study * she did achieve target heart rate to make results valid * since she had improvement in her dyspnea with 2 doses of lasix while here I recommended 2 additional days of lasix 20mg at home, followed by prn use of lasix for weight gain or edema * recommended daily weights at home * suspect that her pulmonary edema may have been driven by dietary indiscretion (she reported copious ham consumption over the ) as well as uncontrolled HTN * if she continues to have ongoing dyspnea recommend dedicated CT chest, PFTs, etc. #celiac disease - * continue gluten free diet #abnormal thyroid function - * TSH was high at 6.5 * Free T4 was borderline low at 0.62 (low level is <0.61) * recommended she have these TFTs rechecked in several weeks post-discharge and if these values remain similar consider thyroid replacement Notes For Next Care Provider 1. repeat TFTs in 3-4 weeks 2. consider dedicated Rx of hyperlipidemia Medication Changes From Visit 1. aspirin 81mg daily 2. metoprolol succinate 25m daily 3. furosemide 20mg daily x 2 days, then prn thereafter 4. potassium chloride 20meq prn when furosemide is taken Admission HPI Per Admitting Provider Patient is 69-year-old female past medical history of hyperlipidemia and hypertension. She presented to the ER after an episode today after cutting grass when she revealed that she didn't remember any of her family members names. Started at approximately 1600 and is improved at time of admission. She denies any other strokelike symptoms. CT and CTAs in ED essentially negative, patient being admitted for stroke workup including MRI of brain. Patient presents with daughter at bedside. She states she was cutting her grass when she developed dyspnea, which she has had on exertion for approximately 1 week. However daughter bedside stated it has been going on for much longer and her mother has been less active and not going out much recently. Patient then stated she realized she could not remember any of her kids names so she called her daughter who informed the patient that she may be dehydrated. Patient drank a glass of water and felt better. Couple hours later patient called her daughter again because she was having difficulty with remembering her families names still. Patient at bedside stated she cannot remember what she did this morning. She does state that her memory of her family is resolved/improved. Patient denies any other strokelike symptoms with the episode today. She stated a couple days ago she had several episodes of numbness of her left hand and bilateral feet that lasted for several seconds. She also endorses a dull achy pain in her right lower extremity for approximately 3 to 4 weeks when she is sleeping. Pain is not reproducible by palpation. She does endorse 1 episode of diarrhea several days ago. ROS otherwise essentially negative, no chills, dizziness, lightheadedness, headaches, vision changes, slurred speech, facial droop, current numbness or tingling, dyspnea, chest pain, abdominal pain, nausea, vomiting. She denies nicotine use or alcohol use. She controls her blood pressure and hyperlipidemia with supplements, has declined statins in the past and not on any prescribed medical management for blood pressure. She denies past history of stroke or family history of stroke. Discharge Exam gen - NAD, looks well neck - no obvious JVD mouth - MMM heart - RRR, s1 s2, no murmur lungs - fine, dry, b/l basilar rales have nearly resolved; no wheezes, good airation abd - soft NT ND BS+ ext - trace edema b/l, pulses b/l feet 2+ neuro - no facial droop; speech clear/fluent; strength 5/5 x 4 exts psych - a/o x 3 Discharge Plan Discharge Items Patient Disposition: Home - Self-Care Reason For Visit: STROKE WORKUP Discharge Diagnosis: 1. suspected episode of transient global amnesia; work-up for stroke including MRI Brain negative 2. high blood pressure 3. hyperlipidemia 4. possible early hypothyroidism 5. shortness of breath with exertion - negative stress test; suspect due to fluid build-up in lungs (pulmonary edema) - improved with diuretics 6. mild plaque (atherosclerosis) in the carotid arteries Activity: As commented below Activity Comment: gradually increase activities over the next few days Non-emergency contact: Primary Care Provider Call non-emergency contact if: you have any medication questions and your symptoms worsen Follow-up/Referrals: Jorge Rangel, [Primary Care Provider] - 03/21/25 11:00 am Diet: Gluten Free and Heart Healthy Addtl Attending Provider Instructions: Mrs Cobunr, You were hospitalized after having had a period of time in which you were having difficulty with your memory, difficulty recalling names & events from the recent past, etc. This episode may have been due to "transient global amnesia" (see handout). We don't know why certain people have episodes like this. The other possibility is that you had a "transient ischemic attack" (TIA for short) but I am more suspicious your symptoms were from the global amnesia condition. See handout on TIA. Your event was not a stroke. The MRI brain was normal - no stroke, bleeding, tumor, or other abnormalities were found. You had asked if your episode could be dementia. The good news is that dementia does not come on suddenly; it comes on gradually over a lengthy period of time (months/years). Thus, the episode was not a sign of dementia. Since I am not 100% certain if this was transient global amnesia vs transient ischemic attack I would recommend a daily baby aspirin moving forward. This will help protect against stroke and heart attacks. In addition to the above you complained of shortness of breath with exertion over the last few weeks. We performed echocardiogram and it was normal. We performed a stress test and that was normal as well (this means we are about 90-95% confident the shortness of breath was not from a blocked coronary artery in your heart). Although your chest x-ray was normal, I believe you had water/fluid build-up in your lungs. You received 2 doses of furosemide diuretic and your breathing improved and your lungs sounded better. Technically speaking water build-up in the lungs would be from a form of congestive heart failure. I don't like the term congestive heart failure because the term makes it sound like your heart is failing you. In actuality your heart is strong, but the untreated high blood pressure and too much salt in your diet can stress the heart and put fluid into the lungs. With controlling your blood pressures, watching salt and fluid intake, etc you can prevent the water from building up again. Recommendations - 1. New medicine for high blood pressure & your heart - * metoprolol succinate 25mg once daily; start this today upon return home 2. Take aspirin 81mg once daily (purchase [id number]). Start this today upon return home. 3. Furosemide water pill (diuretic) - take as follows - * take 20mg the morning of 03/15/25 * take 20mg the morning of 03/16/25 * thereafter just use the furosemide NEEDED * you can take the furosemide if you have swelling in your feet/legs * you should also take the furosemide if you notice that your weight has risen more than 3 pounds over 1-2 days * thus, in the future, if your weight is stable and your legs/feet don't have swelling, you will not need to take the furosemide 4. Potassium supplement - ONLY TAKE THIS if you are taking furosemide water pill. 5. If possible please check your blood pressures at home once or twice a day. Write the numbers down in a notebook and show them to your family doctor. 6. If your breathing does not return to normal despite getting rid of all the fluid I would recommend seeing a lung specialist for additional testing. 7. See handouts on DASH diet which has been shown to control your blood pressure and it helps with overall heart health. 8. Plan to check your weight EVERY DAY on the same scale at home. Check it first thing in the morning after using the toilet. Sometimes the very first sign of taking on extra fluid is a rise in your weight. Again the rule of thumb is that a weight gain of more than 3 pounds in 1-2 days may suggest you are taking on too much fluid in your body. If you have this weight gain be sure to take the furosemide diuretic as discussed above. 9. Watch your salt intake; try to limit it to no more than 2000mg in a 24 hour period. High salt foods include certain deli meats, ham, juárez, chips, soups, certain frozen goods (TV dinners,etc), fast food, fried foods. 10. Have your thyroid levels rechecked by your family doctor in about 3-4 weeks. You may have the beginnings of underactive thyroid (hypothyroidism). Follow-up - see your family doctor as scheduled next week Return to [facility] if - * you have worsening shortness of breath despite taking all of your heart and fluid medicines * you have chest pains * you have symptoms/signs of a stroke * any other concerns It was our pleasure to care for you! -Dr Lacho Grijalvatl Tow [employer] Provider Instructions: Risk Factors for TIA and Stroke: You can reduce your chances of stroke by working with your medical provider to adopt a healthy lifestyle. Some specific ways to lower your chance of stroke are: * If you are a smoker, now is the time to stop smoking cigarettes * If you are diabetic, improve the control of your blood sugars * Avoid excessive amounts of alcohol * Control high blood pressure * Lose weight if you are overweight * Be sure to lead an active lifestyle * Eat a healthy diet low in salt, cholesterol and fat You should know about other risk factors for stroke that you are unable to control. These include: * Age 55 years or older * Male gender * Certain racial groups: , or / * Family History of Stroke, Mini stroke or Heart Attack Who to Call and When: Medical Emergencies: Call 911 immediately if you experience any of the following warning signs and symptoms of Stroke: * Sudden numbness or weakness of the face, arm or leg, especially on one side of the body * Sudden confusion, trouble speaking or understanding * Sudden trouble seeing in one or both eyes * Sudden trouble walking, dizziness, loss of balance or coordination * Sudden severe headache with no cause Do not delay calling 911 if you experience any warning signs or symptoms of a stroke. Delay in seeking medical attention may affect what treatments can be given to you. . Pending Studies at Discharge: No Stand-Alone Forms: My [facility] geolad, Smoking Cessation Medications and DC Order Prescriptions: New aspirin 81 mg tablet,delayed release (DR/EC) 81 mg PO DAILY Qty: 90 3RF Rx Instructions: purchase [id number] metoprolol succinate 25 mg tablet extended release 24 hr 25 mg PO DAILY Qty: 30 5RF Rx Instructions: for high blood pressure furosemide [Lasix] 20 mg tablet 20 mg PO .qam as directed Qty: 30 1RF potassium chloride 20 mEq tablet extended release 20 meq PO DAILY PRN (Reason: ONLY when you take furosemide diuretic) Qty: 30 1RF Continued triamcinolone acetonide 0.1 % cream 1 applic TOP BID Qty: 30 1RF One-A-Day Womens Formula 18 mg iron-400 mcg-500 mg tablet 1 tab PO DAILY cholecalciferol (vitamin D3) 25 mcg (1,000 unit) capsule 25 mcg PO DAILY ascorbate calcium (vitamin C) 500 mg tablet 500 mg PO DAILY calcium carbonate [Calcium 600] 600 mg calcium (1,500 mg) Tablet 600 mg PO DAILY Discharge Orders: Discharge Order (Routine); Ordered 03/14/25 Ordered By: Alfredo Clarke/Other Patient Handouts: What Is a TIA?, Understanding Fat and Cholesterol, DASH Plan Eat Heart Healthy Food, ED Hypercholesterolemia Admission Data Admit Date/Time: 03/13/25 03:29 Attending Provider: Alfredo Monk Admit Provider: Alfredo Ramirez Primary Care Provider: Jorge Rangel Other Providers: Alfredo Ramirez Other Interventions: Discharge Summary Assessment (RN) Last Done: 03/14/25 14:15 Hospital Stay Data Procedures Performed 1. echocardiogram: 2. exercise stress echocardiogram: Diagnostic Imagining Performed Head CT 03/12/25 23:52 EXAM: CT head/brain wo con CLINICAL HISTORY: neuro deficit, acute stroke suspected TECHNIQUE: Multiple axial images are obtained from the skull base to the vertex without contrast. CT scan was performed according to ALARA (as low as reasonably achievable). COMPARISON: 01/22/2018 16:28:59 REIMBURSEMENT SPEC FINDINGS: The brain shows normal morphology, attenuation, and volume for age. No evidence of space occupying lesion, hemorrhage, edema, mass effect, midline shift, extra axial collection, or hydrocephalus is noted. Ventricles, sulci, and basal cisterns are symmetric and normal in size and configuration. The gilmore-white matter differentiation is preserved. Visualized paranasal sinuses and mastoid air cells are well aerated. Orbital contents are within normal limits. Bony structures are intact. IMPRESSION: 1. CT scan is negative for large territorial ischemic / hemorrhagic stroke. 2. Non contrast CT can be negative in the setting of hyperacute infarct/small ischemic infarct and further evaluation with diffusion weighted MRI is recommended as clinically appropriate. 3. No interval changes. Electronically signed by Thaddeus Phillips 03-13-2025 02:01 AM Head CTA 03/12/25 23:52 EXAM: CT angio head w con CLINICAL HISTORY: neuro deficit, acute stroke suspected TECHNIQUE: Contrast enhanced thin slice CT angiography scan of the cerebral vessels was performed with intravenous contrast. Angiographic images were processed, 3D MIP images were acquired for interpretation. Contiguous axial images were obtained. Reformatted coronal and sagittal images were also reviewed. If IV contrast material had not been administered, the likelihood of detecting abnormalities relevant to the patient's condition would have been substantially decreased. CT scan was performed according to ALARA (as low as reasonably achievable). COMPARISON: None. FINDINGS: Bilateral internal carotid arteries show normal course, calibre and opacification in the canalicular and cavernous part. Their division into the anterior cerebral artery and middle cerebral artery is defined. A1, A2 segments are normal on both the sides. M1, M2 segments are normal on both the sides. Right vertebral artery is normal in course and caliber. Left vertebral artery is normal in course and caliber. Basilar artery shows normal course, caliber and opacification. Its division into the posterior cerebral arteries is defined. Bilateral P1 and P2 segments are normal. Visualized venous structures show normal opacification. No evidence of intracranial aneurysm or AV malformation is seen. IMPRESSION: 1. No evidence of stenosis or aneurysm. No evidence of dissection. Electronically signed by Thaddeus Phillips 03-13-2025 02:13 AM Neck CTA 03/12/25 23:52 EXAM: CT angio neck with con CLINICAL HISTORY: neuro deficit, acute stroke suspected TECHNIQUE: Contrast enhanced thin slice CT angiography scan of the carotid vessels was performed with intravenous contrast. Angiographic images were processed, 3D MIP images were acquired for interpretation. Contiguous axial images were obtained. Reformatted coronal and sagittal images were also reviewed. If IV contrast material had not been administered, the likelihood of detecting abnormalities relevant to the patient's condition would have been substantially decreased. CT scan was performed according to ALARA (as low as reasonably achievable). COMPARISON: None. FINDINGS: Included great vessels of the aortic arch are grossly unremarkable. Few small calcified atheromatous plaques are noted involving bilateral carotid bulbs, origin of right vertebral artery causing insignificant luminal stenosis. Common carotid artery, carotid Bulb, internal carotid artery, and origin of the external carotid artery are well opacified. Vertebral arteries are well opacified. Jugular veins are well opacified. Mosaic attenuation is noted involving visualized bilateral lung parenchyma. This could be secondary to underlying small airway disease or perfusion abnormality. Thyroid gland appears unremarkable. IMPRESSION: 1. No evidence of stenosis or aneurysm. No evidence of dissection. 2. Few small calcified atheromatous plaques are noted involving bilateral carotid bulbs, origin of right vertebral artery causing insignificant luminal stenosis. Electronically signed by Thaddeus Phillips 03-13-2025 02:03 AM Brain MRI 03/13/25 03:08 EXAM: MR brain wo con CLINICAL HISTORY: stroke workup TECHNIQUE: Multisequential and multiplanar images of the brain were submitted for review without contrast. COMPARISON: CT scan dated 12 March 2025. FINDINGS: The brain shows normal morphology, signal intensity, and volume for age. Diffusion-weighted sequences show no evidence of acute ischemic infarction. No focal parenchymal lesions are seen. No intracranial hemorrhage, mass effect, midline shift, extra-axial collection, or hydrocephalus is identified. Ventricles, sulci, and basal cisterns are symmetric and normal in size and configuration. Midline structures including the pituitary gland, corpus callosum, pineal region, and brainstem are unremarkable. The craniovertebral junction is within normal limits. No calvarial abnormalities are identified. The paranasal sinuses and mastoid air cells are clear. Orbital structures are unremarkable. Appropriate flow voids are present in the visualized intracranial vessels. IMPRESSION: 1. No significant/acute neuroparenchymal abnormality detected. 2. No evidence of acute infarct/intracranial hemorrhage. No significant interval new abnormality. Electronically signed by Thaddeus Phillips 03-13-2025 06:26 AM Chest X-Ray 03/13/25 15:39 Clinical History: Dyspnea Technique: PA and lateral views of the chest were obtained Comparison is made to the prior examination dated 10/01/2019 Findings: There are no confluent pulmonary infiltrates. The heart size is within normal limits. No pleural effusion or pneumothorax is seen. There is no definite pulmonary nodule. No fracture is noted. No foreign body is seen Impression: No active disease Electronically signed by Parish Patel 03-13-2025 4:34 PM Discharge Instructions Given to Patient (Per Discharging Provider) Mrs Coburn, You were hospitalized after having had a period of time in which you were having difficulty with your memory, difficulty recalling names & events from the recent past, etc. This episode may have been due to "transient global amnesia" (see handout). We don't know why certain people have episodes like this. The other possibility is that you had a "transient ischemic attack" (TIA for short) but I am more suspicious your symptoms were from the global amnesia condition. See handout on TIA. Your event was not a stroke. The MRI brain was normal - no stroke, bleeding, tumor, or other abnormalities were found. You had asked if your episode could be dementia. The good news is that dementia does not come on suddenly; it comes on gradually over a lengthy period of time (months/years). Thus, the episode was not a sign of dementia. Since I am not 100% certain if this was transient global amnesia vs transient ischemic attack I would recommend a daily baby aspirin moving forward. This will help protect against stroke and heart attacks. In addition to the above you complained of shortness of breath with exertion over the last few weeks. We performed echocardiogram and it was normal. We performed a stress test and that was normal as well (this means we are about 90-95% confident the shortness of breath was not from a blocked coronary artery in your heart). Although your chest x-ray was normal, I believe you had water/fluid build-up in your lungs. You received 2 doses of furosemide diuretic and your breathing improved and your lungs sounded better. Technically speaking water build-up in the lungs would be from a form of congestive heart failure. I don't like the term congestive heart failure because the term makes it sound like your heart is failing you. In actuality your heart is strong, but the untreated high blood pressure and too much salt in your diet can stress the heart and put fluid into the lungs. With controlling your blood pressures, watching salt and fluid intake, etc you can prevent the water from building up again. Recommendations - 1. New medicine for high blood pressure & your heart - * metoprolol succinate 25mg once daily; start this today upon return home 2. Take aspirin 81mg once daily (purchase [id number]). Start this today upon return home. 3. Furosemide water pill (diuretic) - take as follows - * take 20mg the morning of 03/15/25 * take 20mg the morning of 03/16/25 * thereafter just use the furosemide NEEDED * you can take the furosemide if you have swelling in your feet/legs * you should also take the furosemide if you notice that your weight has risen more than 3 pounds over 1-2 days * thus, in the future, if your weight is stable and your legs/feet don't have swelling, you will not need to take the furosemide 4. Potassium supplement - ONLY TAKE THIS if you are taking furosemide water pill. 5. If possible please check your blood pressures at home once or twice a day. Write the numbers down in a notebook and show them to your family doctor. 6. If your breathing does not return to normal despite getting rid of all the fluid I would recommend seeing a lung specialist for additional testing. 7. See handouts on DASH diet which has been shown to control your blood pressure and it helps with overall heart health. 8. Plan to check your weight EVERY DAY on the same scale at home. Check it first thing in the morning after using the toilet. Sometimes the very first sign of taking on extra fluid is a rise in your weight. Again the rule of thumb is that a weight gain of more than 3 pounds in 1-2 days may suggest you are taking on too much fluid in your body. If you have this weight gain be sure to take the furosemide diuretic as discussed above. 9. Watch your salt intake; try to limit it to no more than 2000mg in a 24 hour period. High salt foods include certain deli meats, ham, juárez, chips, soups, certain frozen goods (TV dinners,etc), fast food, fried foods. 10. Have your thyroid levels rechecked by your family doctor in about 3-4 weeks. You may have the beginnings of underactive thyroid (hypothyroidism). Follow-up - see your family doctor as scheduled next week Return to [facility] if - * you have worsening shortness of breath despite taking all of your heart and fluid medicines * you have chest pains * you have symptoms/signs of a stroke * any other concerns It was our pleasure to care for you! -Dr Monk Total Time Total Time Spent Total Time Spent (In Minutes): 50 Coding Level of Care Code 91108 INP/OBS DISCH >30 MIN Diagnoses Transient global amnesia G45.4 HLD (hyperlipidemia) E78.5 Primary hypertension I10 Hypertension type: primary hypertension Dyspnea on exertion R06.09 Abnormal thyroid function test R94.6
== END 2025-03-14 15:01 | disposition home or self-care (01) ==
LOC: EDINP 23:32 → ED 23:32 → SUATTDRO 03-13 03:29 → 2N 03-13 12:20